=== PATIENT | male | born 1970 | race Caucasian/White ===

== ENCOUNTER 2017-10-18 09:50 | Inpatient (IN) | payer OTHER ==
[2017-10-18] MEDS ORDERED: SODIUM CHLORIDE 1,000 ML IV STA ×3 (11:13→20:02)
[2017-10-18] MEDS ORDERED: ONDANSETRON 4 MG/2 ML VIAL IVPUSH ONE (11:13)
[2017-10-18] MEDS ORDERED: ACETAMINOPHEN 1000 MG/100 ML VIAL (NON FORMULARY) IVPB ONE (11:14)
[2017-10-18] MEDS ORDERED: ACETAMINOPHEN INJECTION 100 ML IVPB ONE (11:21)
[2017-10-18] MEDS ORDERED: ONDANSETRON 4 MG/2 ML VIAL ONE (11:21)
[2017-10-18 11:43] LABS: BASO % 0.9 % (0-2.0); EOS % 1.1 % (0-4.5); HEMATOCRIT 48.9 % (35.4-49); HEMOGLOBIN 15.7 GM/dL (11.7-16.9); LYMPH % 20.8 % (8-40); MCH 27.3 pg (25.7-33.7); MEAN CELL VOLUME 85.2 fl (80-96); MEAN PLT VOLUME 9.1 fl (7.5-11.1); MONO % 12.8 % (3.8-10.2); NEUT % 64.4 % (42.8-82.8); PLATELET COUNT 174 K/MM3 (134-434); RBC 5.73 M/mm3 (4.00-5.60); RDW 13.2 % (11.9-15.9); WHITE BLOOD COUNT 6.7 K/mm3 (4.0-10.0)
[2017-10-18 12:00] LABS: INR 1.09 (0.82-1.09); PROTHROMBIN TIME (PATIENT) 12.3 SEC (9.98-11.88)
[2017-10-18] MEDS ORDERED: OSELTAMIVIR PHOSPHATE 75 MG CAPSULE PO ONE (12:10)
--- NOTE | 2017-10-18 12:10 | PDOC ---
History of Present Illness - General Chief Complaint: Pain Stated Complaint: ABD PAIN Time Seen by Provider: 10/18/17 10:49 History Source: Patient Exam Limitations: No Limitations - History of Present Illness Initial Comments: 10/18/17 12:40 Patient is a 47-year-old male with past medical history of diverticulitis, insulin-dependent diabetes, who presents emergency department today complaining of flulike symptoms and lower abdominal pain. Patient states that his lower abdominal pain began approximately 1 week ago. He states that he has a sharp constant pain in his left lower quadrant. He says this feels reminiscent to when he had diverticulitis in the past. Admits to nausea. Denies blood in the stool, vomiting, diarrhea, constipation. Patient states he also has flulike symptoms. He began with headache, fever, body aches and congestion yesterday. States he did not receive his flu shot. Denies weakness, dizziness, lightheadedness, syncope, chest pain, shortness of breath. Past History - Travel Traveled outside of the country in the last 30 days: No Close contact w/someone who was outside of country & ill: No - Past Medical History Allergies/Adverse Reactions: Allergies Allergy/AdvReac Type Severity Reaction Status Date / Time No Known Allergies Allergy Verified 10/18/17 09:55 Home Medications: Ambulatory Orders metFORMIN HCL [Glucophage -] 500 mg PO BID 10/15/14 Ciprofloxacin [Cipro -] 500 mg PO Q12H #14 tablet 10/18/17 Docusate Sodium [Colace -] 100 mg PO DAILY #14 capsule 10/18/17 Glipizide 0 mg PO DAILY 10/18/17 Insulin Glargine,Hum.rec.anlog [Basaglar Kwikpen U-100] 50 unit SQ HS #5 insuln.pen 10/18/17 Sitagliptin Phosphate [Januvia] 25 mg PO DAILY #10 tab 10/18/17 COPD: No Diabetes: Yes GI Disorders: Yes (DIVERTICULOSIS) HTN: Yes - Surgical History Abdominal Surgery: Yes (diverticulis) - Suicide/Smoking/Psychosocial Hx Smoking Status: No Smoking History: Never smoked Number of Cigarettes Smoked Daily: 0 Information on smoking cessation initiated: No Hx Alcohol Use: No Drug/Substance Use Hx: No Substance Use Type: None Hx Substance Use Treatment: No Review of Systems - Review of Systems Able to Perform ROS?: Yes Comments:: 10/18/17 13:43 CONSTITUTIONAL: Present: fever, chills Absent: diaphoresis, generalized weakness, malaise, loss of appetite HEENT: Present: nasal congestion Absent: rhinorrhea, throat pain, throat swelling, difficulty swallowing, mouth swelling, ear pain, eye pain, visual Changes CARDIOVASCULAR: Absent: chest pain, loss of consciousness, palpitations, irregular heart rate, peripheral edema RESPIRATORY: Present: cough Absent: shortness of breath, dyspnea with exertion, orthopnea, wheezing, stridor, hemoptysis GASTROINTESTINAL: Present: abdominal pain, nausea Absent: abdominal distension, vomiting, diarrhea, constipation, melena, hematochezia GENITOURINARY: Absent: dysuria, frequency, urgency, hesitancy, hematuria, flank pain, genital pain MUSCULOSKELETAL: Absent: myalgia, arthralgia, joint swelling SKIN: Absent: rash, itching, pallor HEMATOLOGIC/IMMUNOLOGIC: Absent: easy bleeding, easy bruising, lymphadenopathy, frequent infections ENDOCRINE: Absent: unexplained weight gain, unexplained weight loss, heat intolerance, cold intolerance NEUROLOGIC: Present: headache Absent: focal weakness or paresthesias, dizziness, unsteady gait, seizure, mental status changes, bladder or bowel incontinence PSYCHIATRIC: Absent: anxiety, depression, suicidal or homicidal ideation, hallucinations. Is the patient limited Senegalese proficient: No *Physical Exam - Vital Signs Last Vital Signs Temp Pulse Resp BP Pulse Ox 98.8 F 95 H 17 118/85 98 10/18/17 09:53 10/18/17 09:53 10/18/17 09:53 10/18/17 09:53 10/18/17 09:53 - Physical Exam General Appearance: Yes: Nourished, Appropriately Dressed, Obese. No: Apparent Distress HEENT: positive: EOMI, HENNY, Pharynx Normal. negative: Tonsillar Exudate, Tonsillar Erythema Neck: positive: Trachea midline, Supple. negative: Tender, Rigid, Lymphadenopathy (R), Lymphadenopathy (L) Respiratory/Chest: positive: Lungs Clear, Normal Breath Sounds. negative: Respiratory Distress, Accessory Muscle Use, Rhonchi, Stridor, Wheezing Cardiovascular: positive: Regular Rhythm, Regular Rate, S1, S2 (present). negative: Edema, Murmur Gastrointestinal/Abdominal: positive: Normal Bowel Sounds, Tender (LLQ tenderness ), Soft. negative: Distended, Guarding, Rebound Lymphatic: negative: Adenopathy Musculoskeletal: positive: Normal Inspection. negative: CVA Tenderness, Decreased Range of Motion Extremity: positive: Normal Capillary Refill, Normal Inspection, Normal Range of Motion Integumentary: positive: Normal Color, Dry, Warm. negative: Rash, Swelling Neurologic: positive: hand etcher II-XII NML intact, Fully Oriented, Alert, Normal Mood/ Affect, Normal Response, Motor Strength 01/13 ED Treatment Course - LABORATORY CBC & Chemistry Diagram: 10/20/17 07:14 10/20/17 07:14 - ADDITIONAL ORDERS Additional order review: Laboratory Results 10/18/17 10/18/17 11:35 11:35 PT with INR 12.30 H INR 1.09 Lipase Cancelled 10/18/17 11:35 Influenza Types A,B Antigen ([place]) - Preliminary Nasopharyngeal Swab - Preliminary 10/18/17 11:35 RBC 5.73 H MCV 85.2 MCHC 32.0 RDW 13.2 MPV 9.1 Neutrophils % 64.4 Lymphocytes % 20.8 D Monocytes % 12.8 H Eosinophils % 1.1 Basophils % 0.9 - RADIOLOGY Radiology Studies Ordered: Category Date Time Status ABDOMEN & PELVIS CT WITH CONTR [CT] Stat CT Scan 10/18/17 11:14 Ordered CHEST X-RAY PORTABLE* [RAD] Stat Radiology 10/18/17 11:13 Taken - Medications Given in the ED: ED Medications Discontinued Medications Generic Name Dose Route Start Last Admin Trade Name Freq PRN Reason Stop Dose Admin Acetaminophen 1,000 mg 10/18/17 11:14 10/18/17 11:36 Ofirmev Injection - IVPB 10/18/17 11:15 1,000 mg ONCE ONE Administration Ondansetron HCl 4 mg 10/18/17 11:13 10/18/17 11:36 Zofran Injection IVPUSH 10/18/17 11:14 4 mg ONCE ONE Administration Medical Decision Making - Medical Decision Making 10/18/17 12:13 Patient is a 47-year-old male with past medical history of diverticulitis, insulin-dependent diabetes, who presents emergency department today complaining of flulike symptoms for one day and lower abdominal pain for one week. On exam pt with generalized tenderness that is worst in the LLQ. Concerning for diverticulitis. No flank pain on exam. Symptoms also concerning for influenza. 1. CBC, CMP, PT/INR, Lipase, Influenza, UA 2. CTAP with contrast 3. IVF, Zofran, Ofirmev 4.Re-evaluate 10/18/17 13:00 Flu B positive. Gluose 310. Will give 5 units of IV regular insulin. Pt has IV fluids running at this time. Pt. to go to CT scan. Pt. still c/o pain. Will give morphine at this time. 10/18/17 15:01 CTAP: Mild wall thickening is seen involving the middle third of the sigmoid colon suggestive of acute diverticulitis. Minimal pericolonic edema is seen. No extraluminar air is identified. No CT evidence of abscess formation. No bowel obstruction is noted. Pt. still having abdominal pain at this time. Will give another two of morphine. Re-drawing CMP for blood glucose. 10/18/17 17:07 Glucose now 226. Will give another 5 of insulin at this time and hang a second liter of fluids. Pt. still c/o headache and slight nausea. Will give reglan and benadryl. Once meds finish, will also give first dose of IV abx levo and flagyl to cover the diverticulitis. 10/18/17 18:50 Pt. reports that his headache is better after eating. Pt. now with fever of 100.9F. Will give Tylenol at this time. I suspect the fever is from the pt's flu virus. Waiting to finish IV abx and plan is to d/c home with oral medications as long as fever 10/18/17 19:00 Sign out given to Reshma Cunningham. Discussed case and plan. *DC/Admit/Observation/Transfer Diagnosis at time of Disposition: Influenza B, Hyperglycemia due to type 1 diabetes mellitus, Intractable abdominal pain Diverticulitis Qualifiers: Diverticulitis site: large intestine Diverticulitis bleeding: without bleeding Diverticulitis complication: without perforation or abscess Qualified Code(s): K57.32 - Diverticulitis of large intestine without perforation or abscess without bleeding - Discharge Dispostion Condition at time of disposition: Stable Admit: Yes - Prescriptions - Referrals - Patient Instructions - Post Discharge Activity
[2017-10-18 12:11] LABS: ALBUMIN 3.4 g/dl (3.4-5.0); ALK PHOS 91 U/L (45-117); ANION GAP 10 (8-16); BLOOD UREA NITROGEN 11 mg/dL (7-18); CALCIUM 8.5 mg/dL (8.5-10.1); CHLORIDE 96 mmol/L (98-107); CO2 28 mmol/L (21-32); CREATININE 0.9 mg/dL (0.7-1.3); LIPASE 133 U/L (73-393); POTASSIUM 4.4 mmol/L (3.5-5.1); SGOT/AST 31 U/L (15-37); SGPT/ALT 60 U/L (12-78); SODIUM 134 mmol/L (136-145); TOT PROT 7.1 g/dl (6.4-8.2)
[2017-10-18 12:13] LABS: GLUCOSE,RANDOM 331 mg/dL (74-106)
[2017-10-18] MEDS ORDERED: morphine CARPU-JECT 2 MG/1 ML DISP.SYRIN IVPUSH ONE ×2 (12:13→15:04)
[2017-10-18] MEDS ORDERED: INSULIN REGULAR HUMAN 100 UNITS/ML *VIAL IVPUSH ONE ×2 (12:13→16:43)
[2017-10-18] MEDS ORDERED: MORPHINE SULFATE 10 MG/1 ML *VIAL ONE ×2 (12:16→15:24)
[2017-10-18] MEDS ORDERED: OSELTAMIVIR PHOSPHATE 75 MG CAPSULE ONE (12:17)
[2017-10-18] MEDS ORDERED: INSULIN REGULAR HUMAN 100 UNITS/ML *VIAL ONE ×2 (12:18→17:13)
[2017-10-18 12:54] LABS: URINE APPEARANCE CLEAR; URINE BILIRUBIN NEGATIVE (NEGATIVE); URINE BLOOD NEGATIVE (NEGATIVE); URINE COLOR YELLOW; URINE GLUCOSE (UA) 3+ (NEGATIVE); URINE KETONE TRACE (NEGATIVE); URINE LEUK ESTERASE NEGATIVE (NEGATIVE); URINE NITRITE NEGATIVE (NEGATIVE); URINE PROTEIN NEGATIVE (NEGATIVE); URINE UROBILINOGEN NEGATIVE mg/dL (0.2-1.0)
[2017-10-18] MEDS ORDERED: METOCLOPRAMIDE HCL INJECTION 10 MG/2 ML VIAL IVPB ONE (15:03)
[2017-10-18] MEDS ORDERED: METOCLOPRAMIDE HCL INJECTION 10 MG/2 ML VIAL ONE (15:24)
[2017-10-18 16:17] LABS: CALCIUM 8.5 mg/dL (8.5-10.1); CHLORIDE 98 mmol/L (98-107); POTASSIUM 4.7 mmol/L (3.5-5.1); SODIUM 135 mmol/L (136-145)
[2017-10-18 16:24] LABS: ALBUMIN 3.3 g/dl (3.4-5.0); ALK PHOS 84 U/L (45-117); ANION GAP 7 (8-16); BLOOD UREA NITROGEN 10 mg/dL (7-18); CO2 30 mmol/L (21-32); CREATININE 0.8 mg/dL (0.7-1.3); GLUCOSE,RANDOM 265 mg/dL (74-106); SGOT/AST 28 U/L (15-37); SGPT/ALT 56 U/L (12-78); TOT PROT 7.1 g/dl (6.4-8.2)
[2017-10-18] MEDS ORDERED: ACETAMINOPHEN 325 MG TABLET (FP) PO ONE (18:56)
[2017-10-18] MEDS ORDERED: ACETAMINOPHEN 325 MG TABLET (FP) ONE (19:03)
[2017-10-18] MEDS ORDERED: IBUPROFEN 600 MG TABLET (FP) PO ONE ×2 (20:02→20:04)
[2017-10-18] MEDS ORDERED: ALBUTEROL SO4 0.083% IH SOL 2.5 MG/3 ML VIAL.NEB. NEB ONE ×4 (20:02→22:14)
--- NOTE | 2017-10-18 20:03 | PDOC ---
*Physical Exam - Vital Signs Last Vital Signs Temp Pulse Resp BP Pulse Ox 100.9 F H 92 H 18 102/73 98 10/18/17 19:00 10/18/17 19:00 10/18/17 19:00 10/18/17 19:00 10/18/17 19:00 - Physical Exam General Appearance: Yes: Appropriately Dressed Respiratory/Chest: positive: Rhonchi, Other (coarse breath sounds) Gastrointestinal/Abdominal: positive: Normal Bowel Sounds, Tender (LLQ), Soft Extremity: positive: Normal Capillary Refill, Normal Inspection, Normal Range of Motion Integumentary: positive: Normal Color, Dry, Warm Neurologic: positive: Fully Oriented, Alert, Normal Mood/Affect ED Treatment Course - LABORATORY CBC & Chemistry Diagram: 10/18/17 11:35 10/18/17 15:45 - ADDITIONAL ORDERS Additional order review: Laboratory Results 10/18/17 10/18/17 10/18/17 15:45 12:40 11:35 PT with INR INR Sodium 135 L Potassium 4.7 Chloride 98 Carbon Dioxide 30 Anion Gap 7 L BUN 10 Creatinine 0.8 Creat Clearance w eGFR > 60 Random Glucose 265 H Calcium 8.5 Total Bilirubin 1.0 AST 28 ALT 56 Alkaline Phosphatase 84 Total Protein 7.1 Albumin 3.3 L Lipase Cancelled Urine Color Yellow Urine Appearance Clear Urine pH 6.0 Ur Specific [place] 1.035 Urine Protein Negative Urine Glucose (UA) 3+ H Urine Ketones Trace H Urine Blood Negative Urine Nitrite Negative Urine Bilirubin Negative Urine Urobilinogen Negative Ur Leukocyte Esterase Negative 10/18/17 10/18/17 11:35 11:35 PT with INR 12.30 H INR 1.09 Sodium 134 L Potassium 4.4 Chloride 96 L Carbon Dioxide 28 Anion Gap 10 BUN 11 Creatinine 0.9 Creat Clearance w eGFR > 60 Random Glucose 331 H* D Calcium 8.5 Total Bilirubin 1.0 AST 31 D ALT 60 D Alkaline Phosphatase 91 Total Protein 7.1 Albumin 3.4 Lipase 133 Urine Color Urine Appearance Urine pH Ur Specific [place] Urine Protein Urine Glucose (UA) Urine Ketones Urine Blood Urine Nitrite Urine Bilirubin Urine Urobilinogen Ur Leukocyte Esterase 10/18/17 11:35 Influenza Types A,B Antigen ([place]) - Final Nasopharyngeal Swab - Final 10/18/17 11:35 RBC 5.73 H MCV 85.2 MCHC 32.0 RDW 13.2 MPV 9.1 Neutrophils % 64.4 Lymphocytes % 20.8 D Monocytes % 12.8 H Eosinophils % 1.1 Basophils % 0.9 - Medications Given in the ED: ED Medications Discontinued Medications Generic Name Dose Route Start Last Admin Trade Name Gigi PRN Reason Stop Dose Admin Acetaminophen 1,000 mg 10/18/17 11:14 10/18/17 11:36 Ofirmev Injection - IVPB 10/18/17 11:15 1,000 mg ONCE ONE Administration Acetaminophen 975 mg 10/18/17 18:56 10/18/17 19:05 Tylenol - PO 10/18/17 18:57 975 mg ONCE ONE Administration Diphenhydramine HCl 12.5 mg 10/18/17 15:04 10/18/17 15:31 Benadryl Injection - IVPUSH 10/18/17 15:05 12.5 mg ONCE ONE Administration Sodium Chloride 1,000 mls @ 1,000 mls/hr 10/18/17 11:13 10/18/17 11:36 Normal Saline - IV 10/18/17 12:12 1,000 mls/hr ASDIR STA Administration Metronidazole 500 mg in 100 mls @ 100 mls/hr 10/18/17 17:07 10/18/17 17:20 Flagyl 500mg Premixed Ivpb - IVPB 10/18/17 18:06 100 mls/hr ONCE ONE Administration Levofloxacin 750 mg in 150 mls @ 100 mls/hr 10/18/17 17:06 10/18/17 17:49 Levaquin 750 Mg Premixed Ivpb - IVPB 10/18/17 18:35 100 mls/hr ONCE ONE Administration Sodium Chloride 1,000 mls @ 1,000 mls/hr 10/18/17 17:08 10/18/17 17:20 Normal Saline - IV 10/18/17 18:07 1,000 mls/hr ASDIR STA Administration Insulin Human Regular 5 units 10/18/17 12:13 10/18/17 12:23 Novolin R Vial *For Ivpush Or Iv Drip Only* IVPUSH 10/18/17 12:14 5 units ONCE ONE Administration Insulin Human Regular 5 units 10/18/17 16:43 10/18/17 17:19 Novolin R Vial *For Ivpush Or Iv Drip Only* IVPUSH 10/18/17 16:44 5 units ONCE ONE Administration Metoclopramide HCl 10 mg 10/18/17 15:03 10/18/17 15:32 Reglan Injection - IVPB 10/18/17 15:04 10 mg ONCE ONE Administration Morphine Sulfate 2 mg 10/18/17 12:13 10/18/17 12:23 Morphine Injection - IVPUSH 10/18/17 12:14 2 mg ONCE ONE Administration Morphine Sulfate 2 mg 10/18/17 15:04 10/18/17 15:31 Morphine Injection - IVPUSH 10/18/17 15:05 2 mg ONCE ONE Administration Ondansetron HCl 4 mg 10/18/17 11:13 10/18/17 11:36 Zofran Injection IVPUSH 10/18/17 11:14 4 mg ONCE ONE Administration Oseltamivir Phosphate 75 mg 10/18/17 12:10 10/18/17 12:24 Tamiflu - PO 10/18/17 12:11 75 mg ONCE ONE Administration Medical Decision Making - Medical Decision Making 10/18/17 21:45 Patient c/o headache, abdominal pain, with persistent fevers. repeat blood sugar is 336bpm. patient is requesting pain medication will give dose of dilaudid, 10/18/17 21:47 Patient to be admitted for further management of care. patient signed out to Dr. mac. pending blood culture, lactic acid. *DC/Admit/Observation/Transfer Diagnosis at time of Disposition: Influenza B, Hyperglycemia due to type 1 diabetes mellitus, Intractable abdominal pain Diverticulitis Qualifiers: Diverticulitis site: large intestine Diverticulitis bleeding: without bleeding Diverticulitis complication: without perforation or abscess Qualified Code(s): K57.32 - Diverticulitis of large intestine without perforation or abscess without bleeding - Discharge Dispostion Condition at time of disposition: Stable Admit: Yes - Prescriptions Prescriptions: Ciprofloxacin [Cipro -] 500 mg PO Q12H #14 tablet Docusate Sodium [Colace -] 100 mg PO DAILY #14 capsule Insulin Glargine,Hum.rec.anlog [Basaglar Kwikpen U-100] 50 unit SQ HS #5 insuln.pen metroNIDAZOLE [Flagyl -] 500 mg PO TID #21 tablet Oseltamivir Phosphate [Tamiflu] 75 mg PO BID #10 capsule Oxycodone HCl/Acetaminophen [Percocet 5-325 mg Tablet] 1 tab PO Q6H PRN #20 tablet MDD 4 PRN Reason: abdominal pain Sitagliptin Phosphate [Januvia] 25 mg PO DAILY #10 tab - Referrals Referrals: Kenn Nguyen MD [Staff Physician] - Jluis Ordonez MD [Staff Physician] - - Patient Instructions Printed Discharge Instructions: DI for Diverticulitis, DI for Influenza -- Adult Additional Instructions: You have both diverticulitis and influenza B. For your diverticulitis please start taking Cipro and metronidazole tomorrow. Follow the dosing instructions on the bottle. He'll be taking this medication for one week. He received his fiirst dose in the emergency department tonight. Please have a clear liquid diet, soups, jello, for the next 2 days to help the bowel rest. After that he may advance to a soft diet. He may take Percocet as needed for pain. For the flu please take Tylenol or Motrin every 6 hours for fevers. Drink plenty of fluids, and get plenty of rest. Your prescribed Tamiflu. Please take this medication twice a day. Her first dose is given in the emergency department. Please follow up with the referrals provided for you he should follow-up within the next 2-3 days if possible. Return to the emergency department if you have worsening abdominal pain, worsening fevers, difficulty breathing, shortness of breath, abdominal pain, or any changes in your symptoms. - Post Discharge Activity Forms/Work/School Notes: Back to Work
[2017-10-18] MEDS ORDERED: HYDROmorphone HCL CARPU-JECT 1 MG/1 ML DISP.SYRIN IVPUSH ONE (21:50)
--- NOTE | 2017-10-18 22:02 | HP ---
CHIEF COMPLAINT: abdominal pain x 1 week PCP: Dr. Wyatt HISTORY OF PRESENT ILLNESS: 47 y/o M with PMH diverticulitis (last here in 2014; tx with Flagyl and levaquin ), IDDM, who presents to the ED c/o abdominal pain x 1 week. As per pt, his abdominal pain shifts between his RLQ and LLQ, is 10/10, a "sharp, pressure pain ," intermittent, without radiation. When he has the pain, it occurs for approximately 2-3 minutes before it subsides. It is mildly alleviated with Tylenol. Pt also endorses 3-4 loose BM's (without blood), generalized headache, nausea without emesis, productive cough with yellow sputum (without blood), rhinorrhea, myalgias, and SOB at rest over the past day. Otherwise, he denies chills, chest pain, or changes in urinary or bowel function. Pt states that his pain is different from his last flare of diverticulitis, which was more prominent in his LLQ. He has not had drastic changes to his diet recently. ER course was notable for: (1) Febrile 102 tmax (2) Tachy 101HR (3) BG 265 Recent Travel: none PAST MEDICAL HISTORY: hx diverticulitis (follows with PMD Dr. Wyatt who has recommended weight loss), IDDM PAST SURGICAL HISTORY: L knee- meniscus repair, arthroscopy. Unknown abdominal surgery Social History: current solid waste truck driver Smoking: denies Alcohol: denies Drugs: denies Family History: Father- diabetic, with cardiac issues Allergies No Known Allergies Allergy (Verified 10/18/17 09:55) HOME MEDICATIONS: Home Medications Medication Instructions Recorded metFORMIN HCL [Glucophage -] 500 mg PO BID 10/15/14 Ciprofloxacin [Cipro -] 500 mg PO Q12H #14 tablet 10/18/17 Docusate Sodium [Colace -] 100 mg PO DAILY #14 capsule 10/18/17 Glipizide 0 mg PO DAILY 10/18/17 Insulin Glargine,Hum.rec.anlog 50 unit SQ HS #5 insuln.pen 10/18/17 [Basaglar Kwikpen U-100] Oseltamivir Phosphate [Tamiflu] 75 mg PO BID #10 capsule 10/18/17 Oxycodone HCl/Acetaminophen 1 tab PO Q6H PRN #20 tablet MDD 4 10/18/17 [Percocet 5-325 mg Tablet] Sitagliptin Phosphate [Januvia] 0 mg PO DAILY 10/18/17 Sitagliptin Phosphate [Januvia] 25 mg PO DAILY #10 tab 10/18/17 metroNIDAZOLE [Flagyl -] 500 mg PO TID #21 tablet 10/18/17 REVIEW OF SYSTEMS CONSTITUTIONAL: Absent: fever, chills, diaphoresis, generalized weakness, malaise, loss of appetite, weight change HEENT: +rhinorrhea Absent: nasal congestion, throat pain, throat swelling, difficulty swallowing, mouth swelling, ear pain, eye pain, visual changes CARDIOVASCULAR: Absent: chest pain, syncope, palpitations, irregular heart rate, lightheadedness , peripheral edema RESPIRATORY: +cough, SOB Absent: dyspnea with exertion, orthopnea, wheezing, stridor, hemoptysis GASTROINTESTINAL: +abdominal pain, nausea Absent: abdominal distension, vomiting, diarrhea, constipation, melena, hematochezia GENITOURINARY: Absent: dysuria, frequency, urgency, hesitancy, hematuria, flank pain, genital pain MUSCULOSKELETAL: +myalgia Absent: arthralgia, joint swelling, back pain, neck pain SKIN: Absent: rash, itching, pallor HEMATOLOGIC/IMMUNOLOGIC: Absent: easy bleeding, easy bruising, lymphadenopathy, frequent infections ENDOCRINE: Absent: unexplained weight gain, unexplained weight loss, heat intolerance, cold intolerance NEUROLOGIC: +headache Absent: focal weakness or paresthesias, dizziness, unsteady gait, seizure, mental status changes, bladder or bowel incontinence PSYCHIATRIC: Absent: anxiety, depression, suicidal or homicidal ideation, hallucinations. PHYSICAL EXAMINATION Vital Signs - 24 hr 10/18/17 19:00 Temperature 100.9 F H Pulse Rate Pulse Rate [ 92 H Right Radial] Respiratory 18 Rate Blood Pressure Blood Pressure 102/73 [Left Arm] O2 Sat by Pulse 98 Oximetry (%) 10/18/17 10/18/17 20:03 21:44 Temperature 102 F H 100.9 F H Pulse Rate Pulse Rate [ 101 H Right Radial] Respiratory 20 Rate Blood Pressure Blood Pressure 136/76 [Left Arm] O2 Sat by Pulse 93 L Oximetry (%) GENERAL: Sitting up comfortably in bed. Awake, alert, and fully oriented, in no acute distress. Receiving neb tx. HEAD: Normal with no signs of trauma. EYES: Pupils equal, round and reactive to light, extraocular movements intact, sclera anicteric, conjunctiva clear. EARS, NOSE, THROAT: Ears normal, nares patent, oropharynx clear without exudates. Moist mucous membranes. NECK: Normal range of motion, supple LUNGS: Breath sounds equal, clear to auscultation bilaterally. No wheezes, and no crackles. No accessory muscle use. HEART: tachycardic rate and rhythm, normal S1 and S2 without murmur, rub or gallop. ABDOMEN: Soft, obese, TTP in RLQ, LLQ. not distended, normoactive bowel sounds, no guarding, no rebound, no masses. LOWER EXTREMITIES: 2+ posterior tibial pulses, warm, well-perfused. No calf tenderness. No peripheral edema. NEUROLOGICAL: Cranial nerves II-XII intact. Laboratory Results 10/18/17 10/18/17 10/18/17 11:35 11:35 11:35 WBC 6.7 D RBC 5.73 H Hgb 15.7 D Hct 48.9 MCV 85.2 MCH 27.3 MCHC 32.0 RDW 13.2 Plt Count 174 D MPV 9.1 Neutrophils % 64.4 Lymphocytes % 20.8 D Monocytes % 12.8 H Eosinophils % 1.1 Basophils % 0.9 PT with INR 12.30 H INR 1.09 Sodium 134 L Potassium 4.4 Chloride 96 L Carbon Dioxide 28 Anion Gap 10 BUN 11 Creatinine 0.9 Creat Clearance w eGFR > 60 POC Glucometer Random Glucose 331 H* D Calcium 8.5 Total Bilirubin 1.0 AST 31 D ALT 60 D Alkaline Phosphatase 91 Total Protein 7.1 Albumin 3.4 Lipase 133 10/18/17 10/18/17 10/18/17 11:35 12:40 15:45 INR Sodium 135 L Potassium 4.7 Chloride 98 Carbon Dioxide 30 Anion Gap 7 L BUN 10 Creatinine 0.8 Creat Clearance w eGFR > 60 POC Glucometer Random Glucose 265 H Calcium 8.5 Total Bilirubin 1.0 AST 28 ALT 56 Alkaline Phosphatase 84 Total Protein 7.1 Albumin 3.3 L Urine Color Yellow Urine Appearance Clear Urine pH 6.0 Ur Specific [place] 1.035 Urine Protein Negative Urine Glucose (UA) 3+ H Urine Ketones Trace H Urine Blood Negative Urine Nitrite Negative Urine Bilirubin Negative Urine Urobilinogen Negative Ur Leukocyte Esterase Negative Microbiology 10/18/17 11:35 Nasopharyngeal Swab Influenza Types A,B Antigen ([place]) - Final 10/18/17 11:35 Nasopharyngeal Swab - Final Blood cx: pending Urine cx: pending Radio CXR: without infiltrates or effusions Abd/pelvis CT: mild eccentric wall thickening, multiple diverticula noted. Acute uncomplicated diverticultis, diffuse hepatic steatosis. EKG Qtc: 419 ms ASSESSMENT/PLAN: 47 y/o M with PMH diverticulitis (last here in 2014; tx with Flagyl and levaquin ), IDDM, who presents to the ED c/o abdominal pain x 1 week. Pt admitted to med- surg for sepsis 2/2 acute diverticulitis flare. #Sepsis 2/2 acute diverticulitis flare -Febrile 102 Tmax, Tachy 101HR -Received flagyl 500mg x 1 , levaquin 750mg x 1 in ED -Continued on flagyl 500mg IVPB q8h, levaquin 750 mg IVPB qd -Follow EKG, to check for QTc prolongation as pt on Levaquin (and received Zofran). Currently 419 ms WNL. -IVF -clear liquid diet, to allow for bowel rest #Influenza B (+) -Received 1 dose tamiflu 75mg PO x 1 in ED -Continued on tamiflu 75mg PO BID, will need for 5 day course -isolation, droplet precautions #IDDM -ISS ACHS -BGM #PPX DVT: Hep 5000 SQ BID #F/E/N IV NS 100 cc/hr Monitor electrolytes Clear liquid diet, will advance as tolerates #Dispo med-surg for cont'd monitoring Visit type - Emergency Visit Emergency Visit: Yes ED Registration Date: 10/18/17 Care time: The patient presented to the Emergency Department on the above date and was hospitalized for further evaluation of their emergent condition. - New Patient This patient is new to me today: Yes Date on this admission: 10/19/17 - Critical Care Critical Care patient: No
--- NOTE | 2017-10-18 22:05 | PN ---
Teaching Attending Note Name of Resident: Aubree Lawson ATTENDING PHYSICIAN STATEMENT I saw and evaluated the patient. I reviewed the resident's note and discussed the case with the resident. I agree with the resident's findings and plan as documented. SUBJECTIVE: 47 YO M with Pmhx. of diverticulitis., IDDM, who presents with lower abdominal pain. States abdominal pain began around 1 week prior. Notes he has pain that is sharp and constant. Notes that it is located in his LLQ. States he is nauseous, but denies any vomiting or diarrhea. Denies any constipation. Also has associated headache. fever, body aches, and congestionh. Notes he did not get his flu shot. OBJECTIVE: Physical: VS: Vital Signs Period Temp Pulse Resp BP Sys/Yeung Pulse Ox Last 24 Hr 98.8 F-102 F 92-101 17-20 102-137/73-89 93-98 GEN: NAD, Resting in bed, AA0X3 HEENT: NCAT, PERRL, throat without erythema or exudates CARD: RRR S1, S2 RESP: CTAB ABD:BSx4, Ntd to palpation EXT:- C/C/E CBCD WBC 6.7 K/mm3 (4.0-10.0) D 10/18/17 11:35 RBC 5.73 M/mm3 (4.00-5.60) H 10/18/17 11:35 Hgb 15.7 GM/dL (11.7-16.9) D 10/18/17 11:35 Hct 48.9 % (35.4-49) 10/18/17 11:35 MCV 85.2 fl (80-96) 10/18/17 11:35 MCHC 32.0 g/dl (32.0-35.9) 10/18/17 11:35 RDW 13.2 % (11.9-15.9) 10/18/17 11:35 Plt Count 174 K/MM3 (134-434) D 10/18/17 11:35 MPV 9.1 fl (7.5-11.1) 10/18/17 11:35 CMP Sodium 135 mmol/L (136-145) L 10/18/17 15:45 Potassium 4.7 mmol/L (3.5-5.1) 10/18/17 15:45 Chloride 98 mmol/L (98-107) 10/18/17 15:45 Carbon Dioxide 30 mmol/L (21-32) 10/18/17 15:45 Anion Gap 7 (8-16) L 10/18/17 15:45 BUN 10 mg/dL (7-18) 10/18/17 15:45 Creatinine 0.8 mg/dL (0.7-1.3) 10/18/17 15:45 Creat Clearance w eGFR > 60 (>60) 10/18/17 15:45 Random Glucose 265 mg/dL (74-106) H 10/18/17 15:45 Calcium 8.5 mg/dL (8.5-10.1) 10/18/17 15:45 Total Bilirubin 1.0 mg/dL (0.2-1.0) 10/18/17 15:45 AST 28 U/L (15-37) 10/18/17 15:45 ALT 56 U/L (12-78) 10/18/17 15:45 Alkaline Phosphatase 84 U/L (45-117) 10/18/17 15:45 Total Protein 7.1 g/dl (6.4-8.2) 10/18/17 15:45 Albumin 3.3 g/dl (3.4-5.0) L 10/18/17 15:45 CXR- Negative ABD/PELVIS CT: Mild Eccentric wall thickening seen within mid sigmoid colon with probable minimal associated pericolonic edema. Multiple diverticula/ acute uncomplicated diverticulitis. Diffuse hepatic steatosis ASSESSMENT AND PLAN: 47 YO M with Pmhx. of diverticulitis., IDDM, who presents with lower abdominal pain, fevers, and myalgias found to be septic 1.) Sepsis - Due to diverticulitis/Influenza B+ - Isolation Droplet percautions - Jordan Cx - Thu Flu - Levaquin/Flagyl - IVF - Clear Liquid diet 2.) IDDM - FS - RAISS 3.) Dvt Ppx - Heparin [address] in Med-Sx
[2017-10-18] MEDS ORDERED: HYDROmorphone HCL CARPU-JECT 2 MG/1 ML DISP.SYRIN ONE (22:13)
[2017-10-18] MEDS: SODIUM CHLORIDE 1,000 ML IV SCH (23:03)
[2017-10-18] MEDS: HEPARIN NA (PORCINE) 5,000 UNITS/ML 1ML VIAL SQ SCH (23:10)
[2017-10-18] MEDS ORDERED: HEPARIN NA (PORCINE) 5,000 UNITS/ML 1ML VIAL ONE (23:15)
[2017-10-18 23:41] LABS: ARTERIAL BLOOD GAS PCO2 42.8 mmHg (35-45); ARTERIAL BLOOD GAS pH 7.36 (7.35-7.45)
[2017-10-18 23:42] LABS: ALLENS TEST POSITIVE; ARTERIAL BLD GAS O2 SATURATION 91.8 % (90-98.9); ARTERIAL BLOOD GAS PO2 63.5 mmHg (80-100)
[2017-10-19 07:13] LABS: BASO % 0.6 % (0-2.0); EOS % 1.2 % (0-4.5); HEMATOCRIT 48.1 % (35.4-49); HEMOGLOBIN 15.5 GM/dL (11.7-16.9); LYMPH % 29.7 % (8-40); MCH 27.9 pg (25.7-33.7); MCHC 32.3 g/dl (32.0-35.9); MEAN CELL VOLUME 86.5 fl (80-96); MEAN PLT VOLUME 9.3 fl (7.5-11.1); MONO % 15.2 % (3.8-10.2); NEUT % 53.3 % (42.8-82.8); PLATELET COUNT 152 K/MM3 (134-434); RBC 5.56 M/mm3 (4.00-5.60); RDW 13.4 % (11.9-15.9)
[2017-10-19 08:10] LABS: CHLORIDE 100 mmol/L (98-107); POTASSIUM 4.6 mmol/L (3.5-5.1); SODIUM 134 mmol/L (136-145)
[2017-10-19 08:21] LABS: ANION GAP 9 (8-16); BLOOD UREA NITROGEN 12 mg/dL (7-18); CALCIUM 7.9 mg/dL (8.5-10.1); CO2 25 mmol/L (21-32); CREATININE 0.9 mg/dL (0.7-1.3); GLUCOSE,RANDOM 280 mg/dL (74-106)
--- NOTE | 2017-10-19 08:37 | PN ---
Physical Exam: SUBJECTIVE: Patient seen and examined by me this AM - Still with crampy lower abdominal pain in LLQ/RLQ, no BM overnight; Denies N/V ; still with productive cough; poor PO intake; Endorses fevers/chills overnight ; States he had diarrhea last monday after starting diet, eating mostly salads, cooked fish; diarrhea lasted until monday; all BMs since then have been formed , normal color, with no blood or tarry-appearance; denies eating any undercooked food, canned foods recently - Pt received colonoscopy in past, notable for suspected diverticuli; Mother with flu, pt exposed OBJECTIVE: Vital Signs Intake & Output 10/16/17 10/17/17 10/18/17 10/19/17 23:59 23:59 23:59 23:59 Intake Total 1000 Balance 1000 Weight 151.953 kg Period Temp Pulse Resp BP Sys/Yeung Pulse Ox Last 24 Hr 97.7 F-102 F 84-101 15-20 102-143/73-94 93-98 GENERAL: The patient is awake, alert, and fully oriented, laying in bed, in mild discomfort HEAD: Normal with no signs of trauma. EYES: PERRL, extraocular movements intact, sclera anicteric, conjunctiva clear. No ptosis. ENT: Ears normal, nares patent, oropharynx clear without exudates, moist mucous membranes. NECK: Trachea midline, full range of motion, supple. LUNGS: Breath sounds equal, clear to auscultation bilaterally, no wheezes, no crackles, no accessory muscle use. HEART: Regular rate and rhythm, S1, S2 without murmur, rub or gallop. ABDOMEN: Distended abdomen; Pain in all 4 quadrants to palpation, more pronounced in LLQ/RLQ. + Rebound tenderness. Voluntary guarding. Normoactive bowel sounds. No organomegaly or masses noted. EXTREMITIES: 2+ pulses, warm, well-perfused, no edema. NEUROLOGICAL: Cranial nerves II through XII grossly intact. Normal speech, gait not observed. PSYCH: Normal mood, normal affect. SKIN: Warm, dry, normal turgor, no rashes or lesions noted Laboratory Results - last 24 hr CBC, BMP 10/19/17 06:30 10/19/17 06:30 10/18/17 10/18/17 10/18/17 11:35 11:35 11:35 WBC 6.7 D RBC 5.73 H Hgb 15.7 D Hct 48.9 MCV 85.2 MCH 27.3 MCHC 32.0 RDW 13.2 Plt Count 174 D MPV 9.1 Neutrophils % 64.4 Lymphocytes % 20.8 D Monocytes % 12.8 H Eosinophils % 1.1 Basophils % 0.9 PT with INR 12.30 H INR 1.09 Puncture Site ABG pH ABG pCO2 at Pt Temp ABG pO2 at Pt Temp ABG HCO3 ABG O2 Sat (Measured) ABG O2 Content ABG Base Excess Dat Test Oxygen Flow Rate Sodium 134 L Potassium 4.4 Chloride 96 L Carbon Dioxide 28 Anion Gap 10 BUN 11 Creatinine 0.9 Creat Clearance w eGFR > 60 POC Glucometer Random Glucose 331 H* D Lactic Acid Calcium 8.5 Total Bilirubin 1.0 AST 31 D ALT 60 D Alkaline Phosphatase 91 Total Protein 7.1 Albumin 3.4 Lipase 133 Urine Color Urine Appearance Urine pH Ur Specific [place] Urine Protein Urine Glucose (UA) Urine Ketones Urine Blood Urine Nitrite Urine Bilirubin Urine Urobilinogen Ur Leukocyte Esterase 10/18/17 10/18/17 10/18/17 11:35 12:40 15:45 WBC RBC Hgb Hct MCV MCH MCHC RDW Plt Count MPV Neutrophils % Lymphocytes % Monocytes % Eosinophils % Basophils % PT with INR INR Puncture Site ABG pH ABG pCO2 at Pt Temp ABG pO2 at Pt Temp ABG HCO3 ABG O2 Sat (Measured) ABG O2 Content ABG Base Excess Dat Test Oxygen Flow Rate Sodium 135 L Potassium 4.7 Chloride 98 Carbon Dioxide 30 Anion Gap 7 L BUN 10 Creatinine 0.8 Creat Clearance w eGFR > 60 POC Glucometer Random Glucose 265 H Lactic Acid Calcium 8.5 Total Bilirubin 1.0 AST 28 ALT 56 Alkaline Phosphatase 84 Total Protein 7.1 Albumin 3.3 L Lipase Cancelled Urine Color Yellow Urine Appearance Clear Urine pH 6.0 Ur Specific [place] 1.035 Urine Protein Negative Urine Glucose (UA) 3+ H Urine Ketones Trace H Urine Blood Negative Urine Nitrite Negative Urine Bilirubin Negative Urine Urobilinogen Negative Ur Leukocyte Esterase Negative 10/18/17 10/18/17 10/18/17 21:33 23:27 23:38 WBC RBC Hgb Hct MCV MCH MCHC RDW Plt Count MPV Neutrophils % Lymphocytes % Monocytes % Eosinophils % Basophils % PT with INR INR Puncture Site Right radial ABG pH 7.36 ABG pCO2 at Pt Temp 42.8 ABG pO2 at Pt Temp 63.5 L ABG HCO3 23.9 ABG O2 Sat (Measured) 91.8 ABG O2 Content 19.0 ABG Base Excess -1.0 Dat Test Positive Oxygen Flow Rate No Sodium Potassium Chloride Carbon Dioxide Anion Gap BUN Creatinine Creat Clearance w eGFR POC Glucometer [phone] Random Glucose Lactic Acid 1.3 Calcium Total Bilirubin AST ALT Alkaline Phosphatase Total Protein Albumin Lipase Urine Color Urine Appearance Urine pH Ur Specific [place] Urine Protein Urine Glucose (UA) Urine Ketones Urine Blood Urine Nitrite Urine Bilirubin Urine Urobilinogen Ur Leukocyte Esterase 10/19/17 10/19/17 06:30 06:30 WBC 5.0 RBC 5.56 Hgb 15.5 Hct 48.1 MCV 86.5 MCH 27.9 MCHC 32.3 RDW 13.4 Plt Count 152 MPV 9.3 Neutrophils % 53.3 Lymphocytes % 29.7 D Monocytes % 15.2 H Eosinophils % 1.2 Basophils % 0.6 PT with INR INR Puncture Site ABG pH ABG pCO2 at Pt Temp ABG pO2 at Pt Temp ABG HCO3 ABG O2 Sat (Measured) ABG O2 Content ABG Base Excess Dat Test Oxygen Flow Rate Sodium 134 L Potassium 4.6 Chloride 100 Carbon Dioxide 25 Anion Gap 9 BUN 12 Creatinine 0.9 Creat Clearance w eGFR POC Glucometer Random Glucose 280 H Lactic Acid Calcium 7.9 L Total Bilirubin AST ALT Alkaline Phosphatase Total Protein Albumin Lipase Urine Color Urine Appearance Urine pH Ur Specific [place] Urine Protein Urine Glucose (UA) Urine Ketones Urine Blood Urine Nitrite Urine Bilirubin Urine Urobilinogen Ur Leukocyte Esterase Active Medications Generic Name Dose Route Start Last Admin Trade Name Freq PRN Reason Stop Dose Admin Heparin Sodium (Porcine) 5,000 unit 10/18/17 23:15 10/18/17 23:10 Heparin - SQ 5,000 unit BID JOANNA Administration Sodium Chloride 1,000 mls @ 100 mls/hr 10/18/17 23:00 10/18/17 23:03 Normal Saline - IV 100 mls/hr ASDIR JOANNA Administration Levofloxacin 750 mg in 150 mls @ 150 mls/hr 10/19/17 21:00 Levaquin 750 Mg Premixed Ivpb - IVPB DAILY JOANNA Metronidazole 500 mg in 100 mls @ 100 mls/hr 10/18/17 23:15 10/19/17 04:13 Flagyl 500mg Premixed Ivpb - IVPB 100 mls/hr Q8H-IV JOANNA Administration Insulin Aspart 1 vial 10/19/17 07:00 Novolog Vial Sliding Scale - SQ ACHS [facility] Protocol Oseltamivir Phosphate 75 mg 10/19/17 10:00 Tamiflu - PO 10/24/17 09:59 BID JOANNA Microbiology 10/18/17 11:35 Nasopharyngeal Swab Influenza Types A,B Antigen ([place]) - Final 10/18/17 11:35 Nasopharyngeal Swab - Final EKG 10/18 - Sinus tachy, NAD, rate of 102, QTC 419, No T wave or St changes Ab/pelvis CT scan 10/18 - IMPRESSION: Mild eccentric wall thickening is seen within the mid sigmoid colon with probable minimal associated pericolonic edema. Multiple diverticula are noted. The CT appearance is suggestive of acute uncomplicated diverticulitis. Correlation with colonoscopy or barium radiography is suggested when the patient's clinical condition permits. Diffuse hepatic steatosis. CXR 10/18 - No definite interval change is identified in comparison to a previous radiographic study of 2013. If there is ongoing symptomatology CT evaluation may be performed, nonemergent unless otherwise clinically indicated. ASSESSMENT/PLAN: 47 y/o M with PMH diverticulitis, IDDM, who presents to the ED w/ abdominal pain x 1 week precipitated by multiple bouts of diarrhea. Pt has been admitted to med surg for image-confirmed acute diverticulitis, being treated on abx regimen of levaquin/flagyl. #Sepsis secondary to acute diverticulitis - febrile to 102 on admission, w/ tachy to 101; febrile to 102.6; no wbc count - Flagyl 500mg q8h, levaquin 500mg IV for abx coverage; Day 2 of coverage - NPO for bowel rest - Morphine 2mg q4h for pain control - Qtc 419 on EKG on admission - IVFs - Tylenol for fever, pain - Zofran 4mg q4h prn for n/v - Trend WBC, fever curve #Influenza B - positive; receive one dose of tamiflu in ED - tamiflu 75mg PO BID; 5 day course - droplet precautions #IDDM -ISS ACHS -BGM - Hold oral agents #PPX HSQ #FEN NS 100 cc/hr Daily BMP NPO Med-surg for further monitoring Plan discussed with attending, Dr. Kodi Araujo, PGY1 Visit type - Emergency Visit Emergency Visit: Yes ED Registration Date: 10/18/17 Care time: The patient presented to the Emergency Department on the above date and was hospitalized for further evaluation of their emergent condition. - New Patient This patient is new to me today: Yes Date on this admission: 10/19/17 - Critical Care Critical Care patient: No
[2017-10-19] MEDS: INSULIN SLIDING SCALE (NOVOLOG) 1 VIAL SQ SCH ×4 (09:00→21:45)
[2017-10-19] MEDS: HEPARIN NA (PORCINE) 5,000 UNITS/ML 1ML VIAL SQ SCH ×2 (09:37→21:43)
[2017-10-19] MEDS: OSELTAMIVIR PHOSPHATE 75 MG CAPSULE PO SCH ×2 (09:37→21:42)
[2017-10-19] MEDS ORDERED: MORPHINE SULFATE 10 MG/1 ML *VIAL ONE (09:40)
[2017-10-19] MEDS ORDERED: MORPHINE SULFATE 10 MG/1 ML *VIAL IVPUSH ONE (09:45)
--- NOTE | 2017-10-19 12:08 | EKG ---
Test Reason : Blood Pressure : / mmHG Vent. Rate : 102 BPM Atrial Rate : 102 BPM P-R Int : 164 ms QRS Dur : 080 ms QT Int : 322 ms P-R-T Axes : 045 037 023 degrees QTc Int : 419 ms SINUS TACHYCARDIA OTHERWISE NORMAL ECG WHEN COMPARED WITH ECG OF 14-OCT-2014 16:46, NO SIGNIFICANT CHANGE WAS FOUND Confirmed by DAMI MEJIA MD ([id number]) on 10/19/2017 12:08:42 PM Referred By: Confirmed By:DAMI MEJIA MD
[2017-10-19] MEDS ORDERED: MORPHINE SULFATE 10 MG/1 ML *VIAL IVPUSH PRN ×2 (12:58→13:44)
[2017-10-19] MEDS ORDERED: INSULIN (NOVOLOG) ASPART 100 UNITS/ML 10ML VIAL ONE (13:17)
[2017-10-19] MEDS: SODIUM CHLORIDE 1,000 ML IV SCH ×2 (13:30→23:05)
[2017-10-19] MEDS ORDERED: ACETAMINOPHEN INJECTION 100 ML IVPB ONE (14:52)
[2017-10-19] MEDS: ACETAMINOPHEN 1000 MG/100 ML VIAL (NON FORMULARY) IVPB PRN (14:55)
--- NOTE | 2017-10-19 15:01 | PN ---
Teaching Attending Note Name of Resident: Magnus Araujo ATTENDING PHYSICIAN STATEMENT I saw and evaluated the patient. I reviewed the resident's note and discussed the case with the resident. I agree with the resident's findings and plan as documented. SUBJECTIVE:c/o abdominal pain. some relief with pain medications but continue to have significant pain. has non-productive cough. some aches but those are slightly better. denies Cp, SOB, fever, chills, N/V/C/D had colonoscopy after last episode of diverticulitis and told he had small holes ? mother was hospitalized with + flu on Monday. OBJECTIVE: Last Vital Signs Temp Pulse Resp BP Pulse Ox 98.6 F 87 20 131/85 98 10/19/17 07:29 10/19/17 08:11 10/19/17 08:11 10/19/17 08:11 10/19/17 07:29 General mild distress due to pain CV S1 S2 RRR no murmur/rub/gallop Lungs poor inspiratory effort no crackles or wheezing Abdomen soft +RLQ/LLQ hypoactive BS Extremities no pedal edema ASSESSMENT AND PLAN: 47yo M with PMH diverticulits in 2014 and DM presented to the ER wtih cough, myalgia and abodminal pain found to be septic with acute diverticulitis and flu B B 1. Sepsis due to diverticulitis and Influenza B- Tm 102. continues to have abdominal pain. will make NPO for now for bowel rest. cont IVF, Flagyl/Levaquin and Tamiflu day 1. pain and nausea control 2. DM- uncontrolled likely due to sepsis. cont BGM Q6H, iss. hold oral agents 3. DVT ppx- Hep sq
[2017-10-19] MEDS ORDERED: ONDANSETRON 4 MG/2 ML VIAL ONE (15:22)
[2017-10-19] MEDS: ONDANSETRON 4 MG/2 ML VIAL IVPUSH PRN (15:23)
[2017-10-19 18:32] VITALS: BMI 46.4
[2017-10-19] MEDS ORDERED: ACETAMINOPHEN 1000 MG/100 ML VIAL (NON FORMULARY) IVPB ONE ×3 (18:45→22:00)
[2017-10-19] MEDS ORDERED: PT OWN MED DRAWER 7, Y5N ONE (19:21)
[2017-10-19] MEDS ORDERED: ACETAMINOPHEN 500 MG TABLET (FP) PO ONE (20:30)
[2017-10-20] MEDS: ACETAMINOPHEN 1000 MG/100 ML VIAL (NON FORMULARY) IVPB PRN ×2 (05:08→18:42)
[2017-10-20] MEDS: ONDANSETRON 4 MG/2 ML VIAL IVPUSH PRN (05:09)
--- NOTE | 2017-10-20 05:21 | PN ---
Physical Exam: SUBJECTIVE: Patient seen and examined by me this am - No major overnight events. Pt with small amount of nonbloody, nonbilious emesis overnight. Febrile yesterday in PM to 102.6. Ordered for IV tylenol and zofran for fever, nausea. - Pt febrile overnight. Flatus x2, no BMs. No change in pain level. Still with cough. Denies JONES/dizziness, CP, SOB, rashes, peripheral swelling/numbness/ weakness. PM: - Pt with one episode of cough-induced nonbloody, nonbilious emesis. One episode of diarrhea also in PM, no melena or hematochezia. Started on clears OBJECTIVE: Vital Signs Intake & Output 10/17/17 10/18/17 10/19/17 10/20/17 23:59 23:59 23:59 23:59 Intake Total 1000 1850 Balance 1000 1850 Weight 151.953 kg 151.046 kg Period Temp Pulse Resp BP Sys/Yeung Pulse Ox Last 24 Hr 98.4 F-102.6 F 85-101 16-20 113-143/63-94 92-98 GENERAL: Obese middle-aged man is awake, alert, and fully oriented, laying in bed, uncomfortable HEAD: Normal with no signs of trauma. EYES: PERRL, extraocular movements intact, sclera anicteric, conjunctiva clear. No ptosis. ENT: Ears normal, nares patent, oropharynx clear without exudates, moist mucous membranes. NECK: Trachea midline, full range of motion, supple. LUNGS: Breath sounds equal, clear to auscultation bilaterally, no wheezes, no crackles, no accessory muscle use. HEART: Regular rate and rhythm, S1, S2 without murmur, rub or gallop. ABDOMEN: Still w/ Distended abdomen; Pain to superficial and deep palpation in all 4 quadrants, greater in LLQ/RLQ. positive Rebound tenderness. Voluntary guarding. Normoactive bowel sounds. No organomegaly or masses noted. EXTREMITIES: 2+ pulses, warm, well-perfused, no edema. NEUROLOGICAL: Cranial nerves II through XII grossly intact. Normal speech, gait not observed. PSYCH: Normal mood, normal affect. SKIN: Warm, dry, normal turgor, no rashes or lesions noted Laboratory Results - last 24 hr CBC, BMP 10/20/17 07:14 10/20/17 07:14 10/19/17 06:30 10/19/17 06:30 10/19/17 10/19/17 10/19/17 06:30 06:30 08:52 WBC 5.0 RBC 5.56 Hgb 15.5 Hct 48.1 MCV 86.5 MCH 27.9 MCHC 32.3 RDW 13.4 Plt Count 152 MPV 9.3 Neutrophils % 53.3 Lymphocytes % 29.7 D Monocytes % 15.2 H Eosinophils % 1.2 Basophils % 0.6 Sodium 134 L Potassium 4.6 Chloride 100 Carbon Dioxide 25 Anion Gap 9 BUN 12 Creatinine 0.9 POC Glucometer [phone] Random Glucose 280 H Calcium 7.9 L 10/19/17 10/19/17 10/19/17 13:06 16:53 21:41 WBC RBC Hgb Hct MCV MCH MCHC RDW Plt Count MPV Neutrophils % Lymphocytes % Monocytes % Eosinophils % Basophils % Sodium Potassium Chloride Carbon Dioxide Anion Gap BUN Creatinine POC Glucometer [phone] Random Glucose Calcium Active Medications Generic Name Dose Route Start Last Admin Trade Name Freq PRN Reason Stop Dose Admin Acetaminophen 1,000 mg 10/19/17 14:49 10/20/17 05:08 Ofirmev Injection - IVPB 1,000 mg Q6H PRN Administration FEVER Heparin Sodium (Porcine) 5,000 unit 10/18/17 23:15 10/19/17 21:43 Heparin - SQ 5,000 unit BID JOANNA Administration Sodium Chloride 1,000 mls @ 100 mls/hr 10/18/17 23:00 10/19/17 23:05 Normal Saline - IV Not Given ASDIR JOANNA Levofloxacin 750 mg in 150 mls @ 150 mls/hr 10/19/17 21:00 10/19/17 21:45 Levaquin 750 Mg Premixed Ivpb - IVPB 150 mls/hr DAILY JOANNA Administration Metronidazole 500 mg in 100 mls @ 100 mls/hr 10/18/17 23:15 10/20/17 01:04 Flagyl 500mg Premixed Ivpb - IVPB 100 mls/hr Q8H-IV JOANNA Administration Insulin Aspart 1 vial 10/19/17 07:00 10/19/17 21:45 Novolog Vial Sliding Scale - SQ Not Given ACHS JOANNA Protocol Morphine Sulfate 2 mg 10/19/17 13:44 Morphine Injection - IVPUSH Q4H PRN PAIN LEVEL 6-10 Ondansetron HCl 4 mg 10/19/17 14:49 10/20/17 05:09 Zofran Injection IVPUSH 4 mg Q4H PRN Administration NAUSEA AND/OR VOMITING Oseltamivir Phosphate 75 mg 10/19/17 10:00 10/19/17 21:42 Tamiflu - PO 10/24/17 09:59 75 mg BID JOANNA Administration Microbiology 10/18/17 23:00 Blood - Peripheral Venous Blood Culture - Preliminary NO GROWTH OBTAINED AFTER 24 HOURS, INCUBATION TO CONTINUE FOR 4 DAYS. 10/18/17 23:00 Blood - Peripheral Venous Blood Culture - Preliminary NO GROWTH OBTAINED AFTER 24 HOURS, INCUBATION TO CONTINUE FOR 4 DAYS. 10/18/17 11:35 Nasopharyngeal Swab Influenza Types A,B Antigen ([place]) - Final 10/18/17 11:35 Nasopharyngeal Swab - Final EKG 10/18 - Sinus tachy, NAD, rate of 102, QTC 419, No T wave or St changes Ab/pelvis CT scan 10/18 - IMPRESSION: Mild eccentric wall thickening is seen within the mid sigmoid colon with probable minimal associated pericolonic edema. Multiple diverticula are noted. The CT appearance is suggestive of acute uncomplicated diverticulitis. Correlation with colonoscopy or barium radiography is suggested when the patient's clinical condition permits. Diffuse hepatic steatosis. CXR 10/18 - No definite interval change is identified in comparison to a previous radiographic study of 2013. If there is ongoing symptomatology CT evaluation may be performed, nonemergent unless otherwise clinically indicated. EKG 10/20 - NSR, rate 77, NAD, QTC 441, no ST/TW changes ASSESSMENT/PLAN: 47 y/o M with PMH diverticulitis, IDDM, who presents to the ED w/ abdominal pain x 1 week precipitated by multiple bouts of diarrhea. Pt has been admitted to med surg for image-confirmed acute diverticulitis, being treated on abx regimen of levaquin/flagyl. #Sepsis secondary to acute diverticulitis - Tmax 99.8 overnight; no wbc count - Flagyl 500mg q8h, levaquin 500mg IV for abx coverage; Day 3 of coverage - Trial of clears today given improvement in pain; will revert to NPO if pain worse with PO intake - Morphine 2mg q4h for pain control - Qtc 441 on repeat EKG this AM - IVFs - Tylenol for fever, pain - Zofran 4mg q4h prn for n/v - Trend WBC, fever curve #Influenza B - positive; receive one dose of tamiflu in ED - tamiflu 75mg PO BID; Day 2 of 5 day course - droplet precautions #IDDM -ISS ACHS -BGM - Hold oral agents #PPX HSQ #FEN NS 100 cc/hr Daily BMP Trial of clears Med-surg for further monitoring Plan discussed with attending, Dr. Kodi Araujo, PGY1 Visit type - Emergency Visit Emergency Visit: Yes ED Registration Date: 10/18/17 Care time: The patient presented to the Emergency Department on the above date and was hospitalized for further evaluation of their emergent condition. - New Patient This patient is new to me today: No - Critical Care Critical Care patient: No
[2017-10-20] MEDS: INSULIN SLIDING SCALE (NOVOLOG) 1 VIAL SQ SCH ×4 (06:32→21:27)
[2017-10-20] MEDS ORDERED: INSULIN (NOVOLOG) ASPART 100 UNITS/ML 10ML VIAL ONE ×3 (06:34→21:01)
[2017-10-20 07:28] LABS: BASO % 0.7 % (0-2.0); EOS % 0.4 % (0-4.5); HEMATOCRIT 46.3 % (35.4-49); LYMPH % 34.9 % (8-40); MCH 27.7 pg (25.7-33.7); MCHC 32.4 g/dl (32.0-35.9); MEAN CELL VOLUME 85.6 fl (80-96); MEAN PLT VOLUME 9.3 fl (7.5-11.1); MONO % 18.6 % (3.8-10.2); NEUT % 45.4 % (42.8-82.8); PLATELET COUNT 149 K/MM3 (134-434); RBC 5.41 M/mm3 (4.00-5.60); WHITE BLOOD COUNT 4.1 K/mm3 (4.0-10.0)
[2017-10-20 07:54] LABS: ALBUMIN 2.9 g/dl (3.4-5.0); ANION GAP 9 (8-16); BLOOD UREA NITROGEN 9 mg/dL (7-18); CALCIUM 7.8 mg/dL (8.5-10.1); CHLORIDE 97 mmol/L (98-107); CO2 28 mmol/L (21-32); GLUCOSE,RANDOM 248 mg/dL (74-106); POTASSIUM 4.2 mmol/L (3.5-5.1); SODIUM 134 mmol/L (136-145)
[2017-10-20 07:58] LABS: ALK PHOS 78 U/L (45-117); CREATININE 0.8 mg/dL (0.7-1.3); SGOT/AST 41 U/L (15-37); SGPT/ALT 55 U/L (12-78); TOT PROT 6.5 g/dl (6.4-8.2)
[2017-10-20] MEDS ORDERED: PT OWN MED DRAWER 7, Y5N ONE ×2 (10:45→17:53)
[2017-10-20] MEDS: HEPARIN NA (PORCINE) 5,000 UNITS/ML 1ML VIAL SQ SCH ×2 (10:59→21:27)
[2017-10-20] MEDS: OSELTAMIVIR PHOSPHATE 75 MG CAPSULE PO SCH ×2 (11:00→21:27)
--- NOTE | 2017-10-20 11:51 | PN ---
Teaching Attending Note Name of Resident: Magnus Araujo ATTENDING PHYSICIAN STATEMENT I saw and evaluated the patient. I reviewed the resident's note and discussed the case with the resident. I agree with the resident's findings and plan as documented. SUBJECTIVE:continues to have diffuse abdominal pain but worse in the lower abdominal area. 1 episode of vomiting but requesting to eat. cough has resolved. denies CP, SOB, fever, chills. 1 hard BM earlier today. negative for blood OBJECTIVE: Last Vital Signs Temp Pulse Resp BP Pulse Ox 99.2 F 76 20 144/82 95 10/20/17 05:00 10/20/17 05:30 10/20/17 05:00 10/20/17 05:00 10/20/17 05:30 General mild distress due to pain Lungs CTA B/L no wheezing/rales/rhonchi Abdomen soft +RLQ/LLQ hypoactive BS Extremities no pedal edema ASSESSMENT AND PLAN: 47yo M with PMH diverticulits in 2014 and DM presented to the ER wtih cough, myalgia and abodminal pain found to be septic with acute diverticulitis and flu B B 1. Sepsis due to diverticulitis and Influenza B- Tm 102.6. continues to have abdominal pain but not requesting for pain medicaitions. encouraged to request if needed. informed will re-evaluate later in the day if pain is improved and no more vomiting can advance to clear liquid diet. cont IVF, Flagyl/Levaquin and Tamiflu day 2. pain and nausea control 2. DM- uncontrolled likely due to sepsis. cont BGM Q6H, iss. hold oral agents 3. Morbid obesity- BMI 46. lifestyle modifications 4. DVT ppx- Hep sq
--- NOTE | 2017-10-20 14:07 | EKG ---
Test Reason : Blood Pressure : / mmHG Vent. Rate : 077 BPM Atrial Rate : 077 BPM P-R Int : 176 ms QRS Dur : 084 ms QT Int : 390 ms P-R-T Axes : 047 030 022 degrees QTc Int : 441 ms NORMAL SINUS RHYTHM NORMAL ECG WHEN COMPARED WITH ECG OF 18-OCT-2017 21:02, NO SIGNIFICANT CHANGE WAS FOUND Confirmed by HARESH TUCKER MD ([id number]) on 10/20/2017 2:06:35 PM Referred By: Confirmed By:HARESH TUCKER MD
[2017-10-21] MEDS: SODIUM CHLORIDE 1,000 ML IV SCH (05:49)
[2017-10-21] MEDS: ONDANSETRON 4 MG/2 ML VIAL IVPUSH PRN (06:07)
[2017-10-21] MEDS: INSULIN SLIDING SCALE (NOVOLOG) 1 VIAL SQ SCH ×4 (06:07→23:05)
[2017-10-21 07:36] LABS: HEMATOCRIT 48.2 % (35.4-49); HEMOGLOBIN 15.6 GM/dL (11.7-16.9); MCH 27.6 pg (25.7-33.7); MCHC 32.4 g/dl (32.0-35.9); MEAN CELL VOLUME 85.2 fl (80-96); MEAN PLT VOLUME 9.3 fl (7.5-11.1); PLATELET COUNT 181 K/MM3 (134-434); RBC 5.66 M/mm3 (4.00-5.60); RDW 13.1 % (11.9-15.9); WHITE BLOOD COUNT 4.7 K/mm3 (4.0-10.0)
[2017-10-21 08:22] LABS: ALBUMIN 3.1 g/dl (3.4-5.0); ANION GAP 8 (8-16); BLOOD UREA NITROGEN 8 mg/dL (7-18); CALCIUM 7.6 mg/dL (8.5-10.1); CHLORIDE 98 mmol/L (98-107); CO2 27 mmol/L (21-32); GLUCOSE,RANDOM 227 mg/dL (74-106); MAGNESIUM 1.8 mg/dL (1.8-2.4); POTASSIUM 4.3 mmol/L (3.5-5.1); SODIUM 133 mmol/L (136-145)
[2017-10-21 08:25] LABS: ALK PHOS 80 U/L (45-117); BILIRUBIN,TOTAL 0.7 mg/dL (0.2-1.0); CREATININE 0.8 mg/dL (0.7-1.3); PHOSPHOROUS 2.2 mg/dL (2.5-4.9); SGOT/AST 48 U/L (15-37); SGPT/ALT 58 U/L (12-78); TOT PROT 6.9 g/dl (6.4-8.2)
[2017-10-21] MEDS: HEPARIN NA (PORCINE) 5,000 UNITS/ML 1ML VIAL SQ SCH ×2 (09:30→23:05)
[2017-10-21] MEDS: OSELTAMIVIR PHOSPHATE 75 MG CAPSULE PO SCH ×2 (09:30→23:06)
--- NOTE | 2017-10-21 13:46 | PN ---
Progress Note (short form) - Note Progress Note: c/o some nausea this AM. was able to tolerate breakfast. some abdominal pain but improved. cough and myalgia has resolved. denies CP, SOB, fever, chills, C/D Current Medications Generic Name Dose Route Start Last Admin Trade Name Freq PRN Reason Stop Dose Admin Acetaminophen 1,000 mg 10/19/17 14:49 10/20/17 18:42 Ofirmev Injection - IVPB 1,000 mg Q6H PRN Administration FEVER Heparin Sodium (Porcine) 5,000 unit 10/18/17 23:15 10/21/17 09:30 Heparin - SQ 5,000 unit BID JOANNA Administration Sodium Chloride 1,000 mls @ 100 mls/hr 10/18/17 23:00 10/21/17 05:49 Normal Saline - IV 100 mls/hr ASDIR JOANNA Administration Levofloxacin 750 mg in 150 mls @ 150 mls/hr 10/19/17 21:00 10/21/17 09:30 Levaquin 750 Mg Premixed Ivpb - IVPB 150 mls/hr DAILY JOANNA Administration Metronidazole 500 mg in 100 mls @ 100 mls/hr 10/18/17 23:15 10/21/17 09:30 Flagyl 500mg Premixed Ivpb - IVPB 100 mls/hr Q8H-IV JOANNA Administration Insulin Aspart 1 vial 10/19/17 07:00 10/21/17 11:36 Novolog Vial Sliding Scale - SQ 6 units ACHS JOANNA Administration Protocol Morphine Sulfate 2 mg 10/19/17 13:44 Morphine Injection - IVPUSH Q4H PRN PAIN LEVEL 6-10 Ondansetron HCl 4 mg 10/19/17 14:49 10/21/17 06:07 Zofran Injection IVPUSH 4 mg Q4H PRN Administration NAUSEA AND/OR VOMITING Oseltamivir Phosphate 75 mg 10/19/17 10:00 10/21/17 09:30 Tamiflu - PO 10/24/17 09:59 75 mg BID JOANNA Administration Last Vital Signs Temp Pulse Resp BP Pulse Ox 98.2 F 88 18 127/68 95 10/21/17 10:00 10/21/17 10:00 10/21/17 10:00 10/21/17 10:00 10/21/17 10:00 General NAD Lungs CTA B/L no wheezing/rales/rhonchi Abdomen soft +RUQ/LLQ hypoactive BS Extremities no pedal edema CBCD WBC 4.7 K/mm3 (4.0-10.0) 10/21/17 06:30 RBC 5.66 M/mm3 (4.00-5.60) H 10/21/17 06:30 Hgb 15.6 GM/dL (11.7-16.9) 10/21/17 06:30 Hct 48.2 % (35.4-49) 10/21/17 06:30 MCV 85.2 fl (80-96) 10/21/17 06:30 MCHC 32.4 g/dl (32.0-35.9) 10/21/17 06:30 RDW 13.1 % (11.9-15.9) 10/21/17 06:30 Plt Count 181 K/MM3 (134-434) D 10/21/17 06:30 MPV 9.3 fl (7.5-11.1) 10/21/17 06:30 CMP Sodium 133 mmol/L (136-145) L 10/21/17 06:30 Potassium 4.3 mmol/L (3.5-5.1) 10/21/17 06:30 Chloride 98 mmol/L (98-107) 10/21/17 06:30 Carbon Dioxide 27 mmol/L (21-32) 10/21/17 06:30 Anion Gap 8 (8-16) 10/21/17 06:30 BUN 8 mg/dL (7-18) 10/21/17 06:30 Creatinine 0.8 mg/dL (0.7-1.3) 10/21/17 06:30 Creat Clearance w eGFR > 60 (>60) 10/21/17 06:30 Calcium 7.6 mg/dL (8.5-10.1) L 10/21/17 06:30 Total Bilirubin 0.7 mg/dL (0.2-1.0) D 10/21/17 06:30 AST 48 U/L (15-37) H 10/21/17 06:30 ALT 58 U/L (12-78) 10/21/17 06:30 Alkaline Phosphatase 80 U/L (45-117) 10/21/17 06:30 Total Protein 6.9 g/dl (6.4-8.2) 10/21/17 06:30 Albumin 3.1 g/dl (3.4-5.0) L 10/21/17 06:30 ASSESSMENT AND PLAN: 47yo M with PMH diverticulits in 2015 and DM presented to the ER wtih cough, myalgia and abdominal pain found to be septic with acute diverticulitis and flu B B 1. Sepsis due to diverticulitis and Influenza B- afebrile 24H. overall improved but continues to have abdominal pain. believe some may be musculoskeletal from cough. will cont clear liquid diet for now. will re-evaluate tomorrow if improved can try advancing diet. Cont levaquin/flagyl/Tamiflu day 4. pain and nausea control 2. DM- uncontrolled likely due to sepsis. cont BGM Q6H, iss. hold oral agents 3. hypophosphatemia- Neutraphos 4. Morbid obesity- BMI 46. lifestyle modifications 5. DVT ppx- Hep sq Visit type - Emergency Visit Emergency Visit: Yes ED Registration Date: 10/18/17 Care time: The patient presented to the Emergency Department on the above date and was hospitalized for further evaluation of their emergent condition. - New Patient This patient is new to me today: No - Critical Care Critical Care patient: No - Discharge Referral Referred to [facility] Med P.C.: No
[2017-10-21] MEDS ORDERED: NAPH,MB-DB/K PH,MBDB POWDER PACKET PO ONE (14:30)
[2017-10-21] MEDS ORDERED: PT OWN MED DRAWER 7, Y5N ONE (23:02)
[2017-10-21] MEDS ORDERED: OXYMETAZOLINE 0.05% NASAL SOLUTION 15 ML BOTTLE NS ONE (23:27)
[2017-10-22] MEDS: SODIUM CHLORIDE 1,000 ML IV SCH (01:30)
--- NOTE | 2017-10-22 05:30 | PN ---
Physical Exam: SUBJECTIVE: Patient seen and examined by me this AM - No major overnight events. Pain improved, worsened by flatus or BM. Pt tolerating clears, however endorsed mild nausea w/ food at dinnertime. Afebrile overnight. Pt with 4 BM yesterday, all nonbloody diarrhea. Pt with BM last night , then subsequently felt an episode of lower abdominal pain, w/ dizziness and became very diaphoretic. Pt states he sat on toilet for 2 hours in this state and eventually able to walk back to bed, found by nursing. Pt educated to call for assistance if he feels unsteady when ambulating. - vitals stable. Still with cough, nasal congestion; occasional dyspnea OBJECTIVE: Vital Signs Intake & Output 10/19/17 10/20/17 10/21/17 10/22/17 23:59 23:59 23:59 23:59 Intake Total 2140 515 7030 Balance 4251 523 0554 Weight 151.046 kg Period Temp Pulse Resp BP Sys/Yeung Pulse Ox Last 24 Hr 97 F-98.9 F 76-88 18-20 111-145/68-89 95-97 GENERAL: Obese man is awake, alert, and fully oriented, laying in bed, resting comfortably HEAD: Normal with no signs of trauma. EYES: PERRL, extraocular movements intact, sclera anicteric, conjunctiva clear. No ptosis. ENT: Ears normal, nares patent, oropharynx clear without exudates, moist mucous membranes. NECK: Trachea midline, full range of motion, supple. LUNGS: Breath sounds equal, clear to auscultation bilaterally, no wheezes, no crackles, no accessory muscle use. HEART: Regular rate and rhythm, S1, S2 without murmur, rub or gallop. ABDOMEN: Distended abdomen; Mild tenderness to palpation in LLQ/RLQ. No rebound tenderness or guarding. Normoactive bowel sounds. No organomegaly or masses noted. No CVA tenderness. EXTREMITIES: 2+ pulses, warm, well-perfused, no edema. NEUROLOGICAL: Cranial nerves II through XII grossly intact. Normal speech, gait not observed. PSYCH: Normal mood, normal affect. SKIN: Warm, dry, normal turgor, no rashes or lesions noted Laboratory Results - last 24 hr CBC, BMP 10/21/17 06:30 10/22/17 06:30 10/21/17 06:30 10/21/17 06:30 10/21/17 10/21/17 10/21/17 05:52 06:30 06:30 WBC 4.7 RBC 5.66 H Hgb 15.6 Hct 48.2 MCV 85.2 MCH 27.6 MCHC 32.4 RDW 13.1 Plt Count 181 D MPV 9.3 Sodium 133 L Potassium 4.3 Chloride 98 Carbon Dioxide 27 Anion Gap 8 BUN 8 Creatinine 0.8 Creat Clearance w eGFR > 60 POC Glucometer 209 Random Glucose 227 H Calcium 7.6 L Phosphorus 2.2 L Magnesium 1.8 Total Bilirubin 0.7 D AST 48 H ALT 58 Alkaline Phosphatase 80 Total Protein 6.9 Albumin 3.1 L 10/21/17 10/21/17 10/21/17 11:29 16:49 23:04 WBC RBC Hgb Hct MCV MCH MCHC RDW Plt Count MPV Sodium Potassium Chloride Carbon Dioxide Anion Gap BUN Creatinine Creat Clearance w eGFR POC Glucometer 290 257 222 Random Glucose Calcium Phosphorus Magnesium Total Bilirubin AST ALT Alkaline Phosphatase Total Protein Albumin Active Medications Generic Name Dose Route Start Last Admin Trade Name Freq PRN Reason Stop Dose Admin Acetaminophen 1,000 mg 10/19/17 14:49 10/20/17 18:42 Ofirmev Injection - IVPB 1,000 mg Q6H PRN Administration FEVER Heparin Sodium (Porcine) 5,000 unit 10/18/17 23:15 10/21/17 23:05 Heparin - SQ 5,000 unit BID JOANNA Administration Sodium Chloride 1,000 mls @ 100 mls/hr 10/18/17 23:00 10/22/17 01:30 Normal Saline - IV 100 mls/hr ASDIR JOANNA Administration Levofloxacin 750 mg in 150 mls @ 150 mls/hr 10/19/17 21:00 10/21/17 09:30 Levaquin 750 Mg Premixed Ivpb - IVPB 150 mls/hr DAILY JOANNA Administration Metronidazole 500 mg in 100 mls @ 100 mls/hr 10/18/17 23:15 10/22/17 01:30 Flagyl 500mg Premixed Ivpb - IVPB 100 mls/hr Q8H-IV JOANNA Administration Insulin Aspart 1 vial 10/19/17 07:00 10/21/17 23:05 Novolog Vial Sliding Scale - SQ 4 units ACHS JOANNA Administration Protocol Morphine Sulfate 2 mg 10/19/17 13:44 Morphine Injection - IVPUSH Q4H PRN PAIN LEVEL 6-10 Ondansetron HCl 4 mg 10/19/17 14:49 10/21/17 06:07 Zofran Injection IVPUSH 4 mg Q4H PRN Administration NAUSEA AND/OR VOMITING Oseltamivir Phosphate 75 mg 10/19/17 10:00 10/21/17 23:06 Tamiflu - PO 10/24/17 09:59 75 mg BID JOANNA Administration Microbiology 10/18/17 23:00 Blood - Peripheral Venous Blood Culture - Preliminary NO GROWTH OBTAINED AFTER 72 HOURS, INCUBATION TO CONTINUE FOR 2 DAYS. 10/18/17 23:00 Blood - Peripheral Venous Blood Culture - Preliminary NO GROWTH OBTAINED AFTER 72 HOURS, INCUBATION TO CONTINUE FOR 2 DAYS. 10/18/17 04:30 Urine - Urine Clean Catch Urine Culture - Final 10/18/17 11:35 Nasopharyngeal Swab Influenza Types A,B Antigen ([place]) - Final 10/18/17 11:35 Nasopharyngeal Swab - Final EKG 10/18 - Sinus tachy, NAD, rate of 102, QTC 419, No T wave or St changes Ab/pelvis CT scan 10/18 - IMPRESSION: Mild eccentric wall thickening is seen within the mid sigmoid colon with probable minimal associated pericolonic edema. Multiple diverticula are noted. The CT appearance is suggestive of acute uncomplicated diverticulitis. Correlation with colonoscopy or barium radiography is suggested when the patient's clinical condition permits. Diffuse hepatic steatosis. CXR 10/18 - No definite interval change is identified in comparison to a previous radiographic study of 2013. If there is ongoing symptomatology CT evaluation may be performed, nonemergent unless otherwise clinically indicated. EKG 10/20 - NSR, rate 77, NAD, QTC 441, no ST/TW changes ASSESSMENT/PLAN: 47 y/o M with PMH diverticulitis, IDDM, who presents to the ED w/ abdominal pain x 1 week precipitated by multiple bouts of diarrhea. Pt has been admitted to med surg for image-confirmed acute diverticulitis, being treated on abx regimen of levaquin/flagyl. #Sepsis secondary to acute diverticulitis - Afebrile, no wbc count; multiple bouts of nonbloody diarrhea in last 24 hours - Flagyl 500mg q8h, levaquin 500mg IV for abx coverage; Day 5 of coverage - Tolerating clears with occasional N/V - Still w/ diarrhea - Morphine 2mg q4h for pain control - Qtc 441 on repeat EKG this AM - IVFs - Tylenol for fever, pain - Zofran 4mg q4h prn for n/v - Trend WBC, fever curve #Influenza B - positive; receive one dose of tamiflu in ED - tamiflu 75mg PO BID; Day 5 - droplet precautions #IDDM - reconfirmed meds at pt pharmacy today; Only on Januvia at home - Starting levemir 30u qHs tonight - ISS ACHS - BGM - Hold oral agents #Hypomagnesemia - 1.7 this AM - Repleted this AM 2g - Trend #Morbid Obesity - Counseling on diet, exercise for weight loss - Outpt management #PPX HSQ #FEN PO hydration Daily BMP Clear liquid diet Discharge home tomorrow on oral abx and outpt follow-up. Plan discussed with attending, Dr. Kodi Araujo, PGY1 Visit type - Emergency Visit Emergency Visit: Yes ED Registration Date: 10/18/17 Care time: The patient presented to the Emergency Department on the above date and was hospitalized for further evaluation of their emergent condition. - New Patient This patient is new to me today: No - Critical Care Critical Care patient: No
[2017-10-22] MEDS: INSULIN SLIDING SCALE (NOVOLOG) 1 VIAL SQ SCH ×4 (06:16→22:29)
[2017-10-22 08:16] LABS: ANION GAP 9 (8-16); BLOOD UREA NITROGEN 7 mg/dL (7-18); CALCIUM 7.6 mg/dL (8.5-10.1); CHLORIDE 100 mmol/L (98-107); CO2 26 mmol/L (21-32); GLUCOSE,RANDOM 245 mg/dL (74-106); MAGNESIUM 1.7 mg/dL (1.8-2.4); POTASSIUM 3.7 mmol/L (3.5-5.1); SODIUM 135 mmol/L (136-145)
[2017-10-22 08:19] LABS: CREATININE 0.8 mg/dL (0.7-1.3); PHOSPHOROUS 2.7 mg/dL (2.5-4.9)
[2017-10-22] MEDS ORDERED: MAGNESIUM 2GM/50ML STERILE WATER IVPB IVPB ONE (09:30)
[2017-10-22] MEDS ORDERED: PT OWN MED DRAWER 7, Y5N ONE ×2 (09:43→22:17)
[2017-10-22] MEDS: HEPARIN NA (PORCINE) 5,000 UNITS/ML 1ML VIAL SQ SCH ×2 (09:54→22:29)
[2017-10-22] MEDS: OSELTAMIVIR PHOSPHATE 75 MG CAPSULE PO SCH ×2 (09:55→22:29)
--- NOTE | 2017-10-22 12:49 | PN ---
Teaching Attending Note Name of Resident: Magnus Araujo ATTENDING PHYSICIAN STATEMENT I saw and evaluated the patient. I reviewed the resident's note and discussed the case with the resident. I agree with the resident's findings and plan as documented. SUBJECTIVE:feeling weak and tired. became very diaphoretic during a BM last night where he felt like he almost passed out. has had 3 loose BM today. tolerating diet however is unable to eat more than 50% of his meal. denies Cp, SOB, fever, chills, N/V/C/D OBJECTIVE: Last Vital Signs Temp Pulse Resp BP Pulse Ox 98.2 F 87 18 111/78 97 10/22/17 10:00 10/22/17 10:00 10/22/17 10:00 10/22/17 10:10/22/17 09:00 General lethargic Lungs CTA B/L no wheezing/rale/rhonchi Abdomen soft +RLQ tenderness no rebound or guarding, obese ASSESSMENT AND PLAN: 47yo M with PMH diverticulits in 2014 and DM presented to the ER wtih cough, myalgia and abdominal pain found to be septic with acute diverticulitis and flu B B 1. Sepsis due to diverticulitis and Influenza B- afebrile >24H. continues to have multiple BM. will slowly advance diet. start bacid, Cont levaquin/flagyl/ Tamiflu day 5. pain and nausea control. droplet precuations. should have repeat colonoscopy in 4-6weeks. 2. DM- uncontrolled likely due to sepsis. re-start levemir 30 units tonight. cont BGM Q6H, iss. hold oral agents 3. hypophosphatemia- resolved 4. hypomagnesemia- Mg 5. Morbid obesity- BMI 46. lifestyle modifications. discussed in detail about dietary changes and excercise. goal at least 1 lb per week. informed to monitor sugars as loosing weight as his insulin requirement will likely decrease during this time 6. DVT ppx- Hep sq 7. discharge planning for the morning. verbalized understanding and agreement with plan.,
[2017-10-22] MEDS: LACTOBACILLUS ACIDOPHILUS 1 EACH TAB (FP) PO SCH (14:44)
[2017-10-22] MEDS ORDERED: INSULIN DETEMIR 100 UNITS/ML MDV SQ SCH (22:00)
[2017-10-23] MEDS: INSULIN SLIDING SCALE (NOVOLOG) 1 VIAL SQ SCH ×2 (06:53→11:11)
[2017-10-23] MEDS ORDERED: INSULIN (NOVOLOG) ASPART 100 UNITS/ML 10ML VIAL ONE (06:56)
[2017-10-23] MEDS: HEPARIN NA (PORCINE) 5,000 UNITS/ML 1ML VIAL SQ SCH (09:35)
[2017-10-23] MEDS: LACTOBACILLUS ACIDOPHILUS 1 EACH TAB (FP) PO SCH (09:35)
--- NOTE | 2017-10-23 12:16 | PN ---
Teaching Attending Note Name of Resident: Kasandra Cuellar ATTENDING PHYSICIAN STATEMENT I saw and evaluated the patient. I reviewed the resident's note and discussed the case with the resident. I agree with the resident's findings and plan as documented. SUBJECTIVE:asymptomatic. states he is tolerating diet. BM are more formed and less frequent. deneis Cp, SOB< fever, chills, N/V/C/D OBJECTIVE: Last Vital Signs Temp Pulse Resp BP Pulse Ox 97.9 F 85 18 125/92 97 10/23/17 09:00 10/23/17 09:00 10/23/17 09:00 10/23/17 09:00 10/23/17 09:00 General NAD Abdomen soft +RLQ tenderness no rebound or guarding, obese ASSESSMENT AND PLAN: 47yo M with PMH diverticulits in 2014 and DM presented to the ER wtih cough, myalgia and abdominal pain found to be septic with acute diverticulitis and flu B B 1. Sepsis due to diverticulitis and Influenza B- afebrile. tolerating diet. BM are more formed. no repeat episodes of near syncope during BM. on levaquin/ Flagyl day 6. will need to complete 10 day course. completed tamiflu. should have repeat colonoscopy in 4-6weeks. 2. DM- improved. will re-start home dosing of levemir as tolerating regular diet. advised to monitor sugars closely on new diet as his insulin requirements may be reduced. monitor for signs of hypoglycemia. re-start oral agents 3. hypophosphatemia- resolved 4. hypomagnesemia- resolved 5. Morbid obesity- BMI 46. lifestyle modifications. weight loss discussed at length yesterday 6. DVT ppx- Hep sq 7. d/c home,. needs to f/u with PMD this week and GI in 1 month.
[2017-10-23 14:01] VITALS: BP 132/72; PULSE 77; TEMP 97.7
--- NOTE | 2017-10-23 16:29 | DS ---
Physical Exam: SUBJECTIVE: Patient seen and examined. Pt tolerating diet upgrade. Bowel movements are less frequent and more formed. Pt reports some cramping in RUQ and RLQ, but feels ready to go home. Pt denies chest pain, sob, fever, chills, nausea, vomiting, constipation, diarrhea. OBJECTIVE: Vital Signs Period Temp Pulse Resp BP Sys/Yeung Pulse Ox Last 24 Hr 97.7 F-98.2 F 18-85 18-73 100-132/58-92 95-97 PHYSICAL EXAM GENERAL: The patient is awake, alert, and fully oriented, in no acute distress. LUNGS: Breath sounds equal, clear to auscultation bilaterally, no wheezes, no crackles, no accessory muscle use. HEART: Regular rate and rhythm, S1, S2 without murmur, rub or gallop. ABDOMEN: mildly tender to palpation in RUQ and RLQ. Soft, obese abdomen, nondistended, no guarding. PSYCH: Normal mood, normal affect. SKIN: Warm, dry, normal turgor, no rashes or lesions noted. LABS Laboratory Results - last 24 hr 10/22/17 10/22/17 10/23/17 16:04 21:03 05:57 POC Glucometer 234 276 245 10/23/17 10:55 POC Glucometer 276 HOSPITAL COURSE: Date of Admission:10/18/17 Date of Discharge: 10/23/17 47M with PMH of diverticulitis in 2014 and IDDM, presents with abdominal pain, cough and myalgia, found to be septic 2/2 acute diverticulitis and Influenza B ( +). Pt s/p complete course of Tamiflu. Pt receiving IV antibiotics, and will complete course (total of 10 days) of oral antibiotics on discharge. Pt should f/u for colonoscopy in 4-6 weeks. DM improved, home medications resumed on discharge. Pt engaged in extensive discussion regarding lifestyle modifications for weight loss with Dr. Mariee. 10/18/17 CXR -> nondiscrete infiltrate/pleural effusion noted, no significant change since 04/2014. 10/18/17 Ab/Pelvis CT -> mild eccentric mid-sigmoid colon wall thickening, multiple diverticula noted. Acute uncomplicated diverticulitis. Diffuse hepatic steatosis. Microbiology 10/18/17 23:00 Blood - Peripheral Venous Blood Culture - Preliminary NO GROWTH OBTAINED AFTER 96 HOURS, INCUBATION TO CONTINUE FOR 1 DAYS. 10/18/17 23:00 Blood - Peripheral Venous Blood Culture - Preliminary NO GROWTH OBTAINED AFTER 96 HOURS, INCUBATION TO CONTINUE FOR 1 DAYS. 10/18/17 04:30 Urine - Urine Clean Catch Urine Culture - Final 10/18/17 11:35 Nasopharyngeal Swab Influenza Types A,B Antigen ([place]) - Final 10/18/17 11:35 Nasopharyngeal Swab - Final Pt stable for discharge home. Minutes to complete discharge: 35 Discharge Summary Reason For Visit: TYPE 1 DIABETES MELLITUS WITH HYPERGLYCEMIA Current Active Problems Acute diverticulitis (Acute) Diverticulitis (Acute) Hyperglycemia due to type 1 diabetes mellitus (Acute) Influenza B (Acute) Intractable abdominal pain (Acute) Sepsis (Acute) Condition: Stable - Instructions Diet, Activity, Other Instructions: During your stay you were treated for diverticulitis and Influenza type B. Medications: The following medications were added to your regimen. Please take them as described below: Levaquin 500mg, one pill by mouth, once a day, for four more days (10/24 - 10/27) Metronidazole (Flagyl) 500mg, one pill by mouth, three times a day, for four more days (10/24-10/27) Bacid, one pill by mouth, once a day Please continue taking all other home medication as previously prescribed. Follow-ups: Please schedule an appointment to see your primary care physician in one week for further management of your outpatient medication regimen. If you require a referral for a new primary care physician, a referral to our resident clinic has been provided in your discharge packet. Please call the number provided to schedule an appointment within one week of discharge. Please schedule a colonoscopy in 4-6 weeks for further evaluation of your diverticulosis. If you do not have a director product development, information on one has been provided. Activity: Please abide by a consistent exercise routine of 30 minutes of strenuous exercise at least 5 times per week, with a goal weight loss of 1lb per week. Avoid foods high in saturated fats and refined sugar. Avoid processed foods. You should initially eat a low fiber diet for the next week, Then slowly increase the fiber in your diet. Please avoid alcohol consumption while taking antibiotics. Please return to the hospital if you experience any of the following symptoms: - Worsening abdominal pain - Worsening fevers (temp >101) - Persistent, copious diarrhea or vomiting - Any bloody or black stools - Any new or concerning symptoms Referrals: Kenn Nguyen MD [Staff Physician] - Disposition: HOME - Home Medications Comprehensive Discharge Medication List: Ambulatory Orders Docusate Sodium [Colace -] 100 mg PO DAILY #14 capsule 10/18/17 Insulin Glargine,Hum.rec.anlog [Basaglar Kwikpen U-100] 50 unit SQ HS #5 insuln.pen 10/18/17 Sitagliptin Phosphate [Januvia] 25 mg PO DAILY #10 tab 10/18/17 Lactobacillus Acidophilus [Bacid -] 1 tab PO DAILY #30 tab 10/22/17 levoFLOXacin [Levaquin] 750 mg PO DAILY #4 tab 10/23/17 metroNIDAZOLE [Flagyl -] 500 mg PO TID #14 tablet 10/23/17 This patient is new to me today: Yes Date on this admission: 10/23/17 Emergency Visit: Yes ED Registration Date: 10/18/17 Care time: The patient presented to the Emergency Department on the above date and was hospitalized for further evaluation of their emergent condition. Critical Care patient: No - Discharge Referral Referred to [facility] Med P.C.: No
== END 2017-10-23 17:24 | disposition home or self-care (01) | DRG 872 ==
LOC: JER 09:50 → JERBED 22:03 → J4S 10-19 17:32
PROVIDERS: ADMIT Internal Medicine; ATTEND Internal Medicine
DX: A41.9 Sepsis, unspecified organism (principal); K57.92 Diverticulitis of intestine, part unspecified, without perforation or abscess without bleeding; Z68.42 Body mass index [BMI] 45.0-49.9, adult; E83.39 Other disorders of phosphorus metabolism; E83.42 Hypomagnesemia; E66.01 Morbid (severe) obesity due to excess calories; E10.65 Type 1 diabetes mellitus with hyperglycemia; Z79.4 Long term (current) use of insulin; J11.1 Influenza due to unidentified influenza virus with other respiratory manifestations
CPT/HCPCS: 36415; 36600; 71045-TC; 74177-TC; 80048; 80053; 81003; 82803; 82962; 83605; 83690; 83735; 84100; 85025; 85027; 85610; 87040; 87086; 87804; 93005; 93010; 99284-25; J1644

== ENCOUNTER 2020-10-28 07:30 | Inpatient (IN) | payer BC, OTHER ==
[2020-10-28] MEDS ORDERED: SODIUM CHLORIDE 1,000 ML IV STA (08:18)
[2020-10-28] MEDS ORDERED: MECLIZINE HCL 25 MG TABLET (FP) PO ONE (08:18)
[2020-10-28] MEDS ORDERED: MECLIZINE HCL 25 MG TABLET (FP) ONE (08:53)
[2020-10-28 09:54] LABS: BASO % 0.6 % (0-2.0); HEMATOCRIT 47.4 % (35.4-49); HEMOGLOBIN 15.8 GM/dL (11.7-16.9); LYMPH % 27.4 % (8-40); MCH 28.9 pg (25.7-33.7); MCHC 33.4 g/dl (32.0-35.9); MEAN CELL VOLUME 86.6 fl (80-96); MEAN PLT VOLUME 9.9 fl (7.5-11.1); MONO % 7.8 % (3.8-10.2); NEUT % 60.2 % (42.8-82.8); PLATELET COUNT 243 K/MM3 (134-434); RBC 5.48 M/mm3 (4.00-5.60); RDW 12.8 % (11.9-15.9); WHITE BLOOD COUNT 8.5 K/mm3 (4.0-10.0)
[2020-10-28 10:15] LABS: CHLORIDE 100 mmol/L (98-107); SODIUM 134 mmol/L (136-145)
[2020-10-28 10:17] LABS: CALCIUM 8.8 mg/dL (8.5-10.1)
[2020-10-28 10:18] LABS: ALBUMIN 3.3 g/dl (3.4-5.0); BLOOD UREA NITROGEN 16.6 mg/dL (7-18); CO2 26 mmol/L (21-32); GLUCOSE,RANDOM 309 mg/dL (74-106)
[2020-10-28 10:21] LABS: SGOT/AST 50 U/L (15-37); SGPT/ALT 35 U/L (13-61)
[2020-10-28 10:22] LABS: BILIRUBIN,TOTAL 0.9 mg/dL (0.2-1); TOT PROT 7.4 g/dl (6.4-8.2)
[2020-10-28 10:23] LABS: ALK PHOS 92 U/L (45-117)
[2020-10-28 10:33] LABS: ANION GAP 8 MMOL/L (8-16)
[2020-10-28 10:36] LABS: POTASSIUM 6.6 mmol/L (3.5-5.1)
[2020-10-28 11:02] LABS: INR 0.98 (0.83-1.09); PROTHROMBIN TIME (PATIENT) 11.9 SEC (9.7-13.0)
[2020-10-28] MEDS ORDERED: diazePAM 5 MG TABLET PO ONE (15:04)
[2020-10-28] MEDS ORDERED: METOCLOPRAMIDE HCL INJECTION 10 MG/2 ML VIAL IVPUSH ONE (15:14)
[2020-10-28] MEDS ORDERED: ACETAMINOPHEN 1000 MG/100 ML VIAL (NON FORMULARY) IVPB ONE (15:14)
[2020-10-28] MEDS ORDERED: diazePAM 5 MG TABLET ONE (15:24)
[2020-10-28] MEDS ORDERED: ACETAMINOPHEN INJECTION 100 ML IVPB ONE (15:24)
[2020-10-28] MEDS ORDERED: METOCLOPRAMIDE HCL INJECTION 10 MG/2 ML VIAL ONE (15:24)
[2020-10-28] MEDS ORDERED: PANTOPRAZOLE SODIUM 40 MG/100 ML BAG IVPB ONE (17:56)
[2020-10-28] MEDS ORDERED: ENOXAPARIN NA (PORCINE) 40 MG/0.4 ML DISP.SYRIN SQ ONE (17:57)
[2020-10-28] MEDS: ENOXAPARIN NA (PORCINE) 40 MG/0.4 ML DISP.SYRIN SQ SCH (18:03)
[2020-10-28] MEDS: PANTOPRAZOLE SODIUM 40 MG VIAL IVPUSH SCH (18:04)
[2020-10-28] MEDS ORDERED: INSULIN REGULAR HUMAN 100 UNITS/ML *VIAL ONE (18:07)
[2020-10-28] MEDS: INSULIN SLIDING SCALE (NOVOLOG) 1 VIAL SQ SCH (18:10)
[2020-10-29 00:03] VITALS: BMI 42.7
[2020-10-29] MEDS: ACETAMINOPHEN 325 MG TABLET (FP) PO PRN (05:36)
[2020-10-29] MEDS: INSULIN SLIDING SCALE (NOVOLOG) 1 VIAL SQ SCH ×3 (06:20→17:35)
[2020-10-29] MEDS: ENOXAPARIN NA (PORCINE) 40 MG/0.4 ML DISP.SYRIN SQ SCH (09:32)
[2020-10-29] MEDS: PANTOPRAZOLE SODIUM 40 MG VIAL IVPUSH SCH (09:33)
[2020-10-29] MEDS ORDERED: FLU VACCINE (FLULAVAL) PF 60 MCG/0.5 ML SYRINGE 2020-2021 IM ONE (10:00)
[2020-10-29 10:26] LABS: POTASSIUM 4.9 mmol/L (3.5-5.1)
[2020-10-29 10:42] LABS: ALBUMIN 3.2 g/dl (3.4-5.0); CALCIUM 8.9 mg/dL (8.5-10.1)
[2020-10-29 10:43] LABS: BLOOD UREA NITROGEN 13.3 mg/dL (7-18)
[2020-10-29 10:45] LABS: CREATININE 0.8 mg/dL (0.55-1.3)
[2020-10-29 10:47] LABS: BILIRUBIN,TOTAL 1.1 mg/dL (0.2-1)
[2020-10-29 10:49] LABS: TOT PROT 6.7 g/dl (6.4-8.2)
[2020-10-29] MEDS ORDERED: diphenhydrAMINE HCL 25 MG CAPSULE (FP) PO PRN (12:22)
[2020-10-29] MEDS: TOPIRAMATE 25 MG TABLET PO SCH (17:36)
[2020-10-29] MEDS ORDERED: SUMAtriptan SUCCINATE 50 MG TABLET PO PRN (18:27)
[2020-10-29] MEDS: INSULIN (NOVOLOG MIX 70/30) 100 UNITS/ML MDV SQ SCH (18:27)
[2020-10-29] MEDS ORDERED: PRAMIPEXOLE DIHYDROCHLORIDE 0.125 MG TABLET PO SCH (22:00)
[2020-10-29] MEDS ORDERED: PT OWN MED DRAWER 7, Y5N ONE (22:03)
[2020-10-30] MEDS: ACETAMINOPHEN 325 MG TABLET (FP) PO PRN (06:08)
[2020-10-30] MEDS: INSULIN (NOVOLOG MIX 70/30) 100 UNITS/ML MDV SQ SCH (06:10)
[2020-10-30] MEDS: INSULIN SLIDING SCALE (NOVOLOG) 1 VIAL SQ SCH ×2 (06:11→12:30)
[2020-10-30 09:23] LABS: POTASSIUM 4.7 mmol/L (3.5-5.1)
[2020-10-30 09:25] LABS: BLOOD UREA NITROGEN 14.2 mg/dL (7-18); CALCIUM 8.7 mg/dL (8.5-10.1)
[2020-10-30 09:28] LABS: CREATININE 0.9 mg/dL (0.55-1.3)
[2020-10-30] MEDS ORDERED: PANTOPRAZOLE 40 MG TABLET PO SCH (10:00)
[2020-10-30] MEDS ORDERED: PT OWN MED DRAWER 7, Y5N ONE (10:43)
[2020-10-30] MEDS: TOPIRAMATE 25 MG TABLET PO SCH (10:44)
[2020-10-30] MEDS: ENOXAPARIN NA (PORCINE) 40 MG/0.4 ML DISP.SYRIN SQ SCH (10:44)
[2020-10-30 11:41] VITALS: BP 136/97; PULSE 74; TEMP 98.4
[2020-10-30] MEDS ORDERED: INSULIN (NOVOLOG MIX 70/30) 100 UNITS/ML MDV SQ SCH (16:30)
== END 2020-10-30 14:23 | disposition home or self-care (01) | DRG 103 ==
LOC: JER 07:30 → JERBED 15:08 → J7W 22:43
PROVIDERS: ADMIT Internal Medicine; ATTEND Internal Medicine
DX: G43.109 Migraine with aura, not intractable, without status migrainosus (principal); Z68.41 Body mass index [BMI] 40.0-44.9, adult; E66.01 Morbid (severe) obesity due to excess calories; E11.65 Type 2 diabetes mellitus with hyperglycemia; Z79.4 Long term (current) use of insulin; R42 Dizziness and giddiness; M62.81 Muscle weakness (generalized); G25.81 Restless legs syndrome
CPT/HCPCS: 36415; 70450-TC; 80048; 80053; 82550; 82962; 83036; 84132; 84484; 85025; 85610; 93005; 93010; 97116-GP; 97161-GP; 99285-25; C9803; G0008; J0131; Q2036; U0003

== ENCOUNTER 2021-12-02 17:36 | Emergency (ER) | payer BC ==
[2021-12-02 17:56] VITALS: TEMP 98.1; BMI 43.2
[2021-12-02] MEDS ORDERED: SODIUM CHLORIDE 1,000 ML IV STA ×2 (18:25→18:26)
[2021-12-02 19:05] LABS: VENOUS PCO2 61.7 mmHg (38-52); VENOUS PH 7.307 (7.310-7.410)
[2021-12-02 19:10] LABS: BASO % 0.6 % (0-2.0); EOS % 2.2 % (0-4.5); HEMATOCRIT 44.6 % (35.4-49); HEMOGLOBIN 14.7 GM/dL (11.7-16.9); LYMPH % 36.9 % (8-40); MCH 28.5 pg (25.7-33.7); MEAN CELL VOLUME 86.4 fl (80-96); MEAN PLT VOLUME 10.2 fl (7.5-11.1); MONO % 8.7 % (3.8-10.2); NEUT % 51.6 % (42.8-82.8); PLATELET COUNT 270 10^3/uL (134-434); RBC 5.16 M/mm3 (4.00-5.60); RDW 12.9 % (11.9-15.9)
[2021-12-02 19:26] LABS: CALCIUM 9.5 mg/dL (8.5-10.1)
[2021-12-02 19:27] LABS: ALBUMIN 3.8 g/dl (3.4-5.0); BLOOD UREA NITROGEN 20.7 mg/dL (7-18)
[2021-12-02 19:30] LABS: CREATININE 1.1 mg/dL (0.55-1.3)
[2021-12-02 19:31] LABS: BILIRUBIN,TOTAL 0.7 mg/dL (0.2-1); TOT PROT 7.4 g/dl (6.4-8.2)
[2021-12-02 21:53] LABS: PH,URINE 6.5 (5.0-8.0); URINE APPEARANCE CLEAR; URINE BILIRUBIN NEGATIVE (NEGATIVE); URINE COLOR YELLOW; URINE GLUCOSE (UA) 3+ (NEGATIVE); URINE KETONE NEGATIVE (NEGATIVE); URINE LEUK ESTERASE NEGATIVE (NEGATIVE); URINE NITRITE NEGATIVE (NEGATIVE); URINE PROTEIN NEGATIVE (NEGATIVE)
[2021-12-02 22:39] VITALS: BP 168/78; PULSE 76
== END 2021-12-02 22:39 | disposition home or self-care (01) ==
LOC: JER 17:36
PROC: 3E0337Z Introduction of Electrolytic and Water Balance Substance into Peripheral Vein, Percutaneous Approach (ICD-10-PCS; principal; 2021-12-02)
DX: E11.65 Type 2 diabetes mellitus with hyperglycemia (principal)
CPT/HCPCS: 36415; 80053; 81003; 82010; 82803; 82962; 85025; 93005; 93010; 99284-25

== ENCOUNTER 2022-01-30 11:14 | Emergency (ER) | payer BC, OTHER ==
[2022-01-30 11:31] VITALS: TEMP 98.4; BMI 43.2
[2022-01-30] MEDS ORDERED: BEBTELOVIMAB (EUA) 175 MG/2 ML VIAL IVPUSH ONE (11:38)
[2022-01-30 14:03] VITALS: BP 105/55; PULSE 91
== END 2022-01-30 14:08 | disposition home or self-care (01) ==
LOC: JER 11:14
PROC: 3E033GC Introduction of Other Therapeutic Substance into Peripheral Vein, Percutaneous Approach (ICD-10-PCS; principal; 2022-01-30)
DX: U07.1 COVID-19 (principal)
CPT/HCPCS: 99284-25; Q0222

== ENCOUNTER 2023-01-02 11:44 | Observation (INO) | payer BC ==
[2023-01-02] MEDS ORDERED: ONDANSETRON 4 MG/2 ML VIAL IVPUSH ONE (13:04)
[2023-01-02] MEDS ORDERED: FAMOTIDINE 20 MG/50 ML IVPB 20 MG/50 ML MG IVPB ONE ×2 (13:04→14:23)
[2023-01-02] MEDS ORDERED: MAG HYDROX/AL HYDROX/SIMETH -MYLANTA- ORAL SUSPENSION PO ONE (13:04)
[2023-01-02 13:15] LABS: BASO % 0.6 % (0-2.0); EOS % 1.5 % (0-4.5); HEMATOCRIT 47.6 % (35.4-49); LYMPH % 18.2 % (8-40); MCH 27.5 pg (25.7-33.7); MCHC 33.6 g/dl (32.0-35.9); MEAN CELL VOLUME 81.8 fl (80-96); MEAN PLT VOLUME 9.1 fl (7.5-11.1); MONO % 7.9 % (3.8-10.2); NEUT % 71.8 % (42.8-82.8); PLATELET COUNT 238 10^3/uL (134-434); RBC 5.82 M/mm3 (4.00-5.60); RDW 13.7 % (11.9-15.9); WHITE BLOOD COUNT 11.7 K/mm3 (4.0-10.0)
[2023-01-02 13:20] LABS: INR 1.1 (0.83-1.09); PROTHROMBIN TIME (PATIENT) 12.8 SEC (9.7-13.0)
[2023-01-02 13:23] LABS: ACTIVATED PTT 33.1 SECONDS (25.2-36.5)
[2023-01-02] MEDS ORDERED: ACETAMINOPHEN 1000 MG/100 ML BAG IVPB ONE ×2 (13:42→21:29)
[2023-01-02 13:44] LABS: ALBUMIN 3.4 g/dl (3.4-5.0); BLOOD UREA NITROGEN 18.3 mg/dL (7-18); MAGNESIUM 1.9 mg/dL (1.8-2.4)
[2023-01-02 13:47] LABS: CREATININE 0.9 mg/dL (0.55-1.3)
[2023-01-02 13:48] LABS: URINE APPEARANCE CLEAR; URINE BILIRUBIN NEGATIVE (NEGATIVE); URINE COLOR YELLOW; URINE GLUCOSE (UA) 3+ (NEGATIVE); URINE KETONE NEGATIVE (NEGATIVE); URINE LEUK ESTERASE NEGATIVE (NEGATIVE); URINE NITRITE NEGATIVE (NEGATIVE); URINE PROTEIN NEGATIVE (NEGATIVE); URINE UROBILINOGEN 0.2 mg/dL (0.2-1.0)
[2023-01-02 13:49] LABS: TOT PROT 7.3 g/dl (6.4-8.2)
[2023-01-02 13:52] LABS: N-TERMINAL BNP 27.5 pg/ml (5-125)
[2023-01-02] MEDS ORDERED: ACETAMINOPHEN INJECTION 100 ML IVPB ONE (14:22)
[2023-01-02] MEDS ORDERED: ONDANSETRON 4 MG/2 ML VIAL ONE (14:23)
[2023-01-02] MEDS ORDERED: MAG HYDROX/AL HYDROX/SIMETH 30 ML UNIT-DOSE CUP ONE (14:23)
[2023-01-02] MEDS ORDERED: FLUCONAZOLE 100 MG TABLET (UD) PO ONE (16:13)
[2023-01-02] MEDS ORDERED: SUMAtriptan SUCCINATE 50 MG TABLET PO PRN (17:18)
[2023-01-02] MEDS ORDERED: MAG HYDROX/AL HYDROX/SIMETH 30 ML UNIT-DOSE CUP PO ONE (19:49)
[2023-01-02] MEDS: GABAPENTIN 300 MG CAPSULE PO SCH (21:58)
[2023-01-02] MEDS: ATORVASTATIN CA 10 MG TABLET (FP) PO SCH (21:58)
[2023-01-02] MEDS ORDERED: PRAMIPEXOLE DIHYDROCHLORIDE 0.125 MG TABLET PO SCH (22:00)
[2023-01-03] MEDS: INSULIN SLIDING SCALE (NOVOLOG) 1 VIAL SQ SCH ×3 (06:10→16:51)
[2023-01-03] MEDS: INSULIN (NOVOLOG MIX 70/30) 100 UNITS/ML MDV SQ SCH ×2 (06:10→16:50)
[2023-01-03 09:08] LABS: BASO % 0.4 % (0-2.0); EOS % 1.6 % (0-4.5); HEMATOCRIT 48.4 % (35.4-49); HEMOGLOBIN 16.1 GM/dL (11.7-16.9); LYMPH % 15.3 % (8-40); MCH 27.4 pg (25.7-33.7); MCHC 33.2 g/dl (32.0-35.9); MEAN CELL VOLUME 82.5 fl (80-96); MEAN PLT VOLUME 8.4 fl (7.5-11.1); NEUT % 74.7 % (42.8-82.8); PLATELET COUNT 269 10^3/uL (134-434); RBC 5.87 M/mm3 (4.00-5.60); WHITE BLOOD COUNT 12.5 K/mm3 (4.0-10.0)
[2023-01-03] MEDS ORDERED: traMADol HCL 50 MG TABLET PO PRN (09:10)
[2023-01-03] MEDS ORDERED: ACETAMINOPHEN 325 MG TABLET (FP) PO PRN (09:10)
[2023-01-03] MEDS: ASPIRIN 81 MG CHEWABLE TABLETS PO SCH (09:20)
[2023-01-03] MEDS: FUROSEMIDE 20 MG TABLET (FP) PO SCH (09:21)
[2023-01-03] MEDS: ENOXAPARIN NA (PORCINE) 40 MG/0.4 ML DISP.SYRIN SQ SCH (09:21)
[2023-01-03] MEDS: FLUCONAZOLE 100 MG TABLET (UD) PO SCH (09:21)
[2023-01-03] MEDS: GABAPENTIN 300 MG CAPSULE PO SCH ×2 (09:22→21:46)
[2023-01-03] MEDS: TOPIRAMATE 25 MG TABLET PO SCH (09:23)
[2023-01-03 09:43] LABS: BILIRUBIN,TOTAL 1.5 mg/dL (0.2-1)
[2023-01-03 09:45] LABS: TOT PROT 7.4 g/dl (6.4-8.2)
[2023-01-03 09:46] LABS: ALBUMIN 3.3 g/dl (3.4-5.0); BLOOD UREA NITROGEN 13.9 mg/dL (7-18); PHOSPHOROUS 3.1 mg/dL (2.5-4.9)
[2023-01-03 09:48] LABS: CREATININE 0.8 mg/dL (0.55-1.3); MAGNESIUM 2.1 mg/dL (1.8-2.4)
[2023-01-03 17:37] LABS: HIV INTERPRETATION NEGATIVE (NEGATIVE)
[2023-01-03] MEDS: ATORVASTATIN CA 10 MG TABLET (FP) PO SCH (21:46)
[2023-01-03] MEDS ORDERED: PRAMIPEXOLE DIHYDROCHLORIDE 0.25 MG TABLET PO SCH (22:00)
[2023-01-04] MEDS: INSULIN SLIDING SCALE (NOVOLOG) 1 VIAL SQ SCH ×2 (06:31→11:20)
[2023-01-04] MEDS: INSULIN (NOVOLOG MIX 70/30) 100 UNITS/ML MDV SQ SCH (06:31)
[2023-01-04 09:08] LABS: BASO % 0.5 % (0-2.0); EOS % 3.3 % (0-4.5); HEMOGLOBIN 16.8 GM/dL (11.7-16.9); LYMPH % 20.2 % (8-40); MCH 27.6 pg (25.7-33.7); MCHC 33.7 g/dl (32.0-35.9); MEAN CELL VOLUME 82.1 fl (80-96); MEAN PLT VOLUME 9.1 fl (7.5-11.1); MONO % 8.4 % (3.8-10.2); NEUT % 67.6 % (42.8-82.8); PLATELET COUNT 264 10^3/uL (134-434); RBC 6.09 M/mm3 (4.00-5.60); RDW 13.6 % (11.9-15.9)
[2023-01-04] MEDS: ASPIRIN 81 MG CHEWABLE TABLETS PO SCH (10:23)
[2023-01-04] MEDS: FLUCONAZOLE 100 MG TABLET (UD) PO SCH (10:23)
[2023-01-04] MEDS: ENOXAPARIN NA (PORCINE) 40 MG/0.4 ML DISP.SYRIN SQ SCH (10:23)
[2023-01-04] MEDS: FUROSEMIDE 20 MG TABLET (FP) PO SCH (10:23)
[2023-01-04] MEDS: GABAPENTIN 300 MG CAPSULE PO SCH (10:23)
[2023-01-04] MEDS: TOPIRAMATE 25 MG TABLET PO SCH (10:24)
[2023-01-04 14:10] VITALS: BMI 44.7
[2023-01-04 14:35] VITALS: BP 98/66; PULSE 85; TEMP 98.5
[2023-01-04 15:41] VITALS: RESP 18
== END 2023-01-04 17:00 | disposition home or self-care (01) ==
LOC: JER 11:44 → JERBED 15:28 → J8W 18:34
PROVIDERS: ADMIT Internal Medicine; ATTEND Nurse Practitioner Family
PROC: 3E023GC Introduction of Other Therapeutic Substance into Muscle, Percutaneous Approach (ICD-10-PCS; 2023-01-02)
PROC: 3E033GC Introduction of Other Therapeutic Substance into Peripheral Vein, Percutaneous Approach (ICD-10-PCS; 2023-01-02)
PROC: 3E013VG Introduction of Insulin into Subcutaneous Tissue, Percutaneous Approach (ICD-10-PCS; 2023-01-02)
PROC: 3E033NZ Introduction of Analgesics, Hypnotics, Sedatives into Peripheral Vein, Percutaneous Approach (ICD-10-PCS; principal; 2023-01-02 14:30)
DX: B37.81 Candidal esophagitis (principal); E11.65 Type 2 diabetes mellitus with hyperglycemia; R10.13 Epigastric pain; E78.5 Hyperlipidemia, unspecified; K57.92 Diverticulitis of intestine, part unspecified, without perforation or abscess without bleeding; Z79.4 Long term (current) use of insulin; K56.49 Other impaction of intestine; R13.10 Dysphagia, unspecified; E66.01 Morbid (severe) obesity due to excess calories; Z68.41 Body mass index [BMI] 40.0-44.9, adult
CPT/HCPCS: 0241U-QW; 36415; 71045-TC-FY; 80053; 81003; 82962; 83036; 83690; 83735; 83880; 84100; 84443; 84484; 85025; 85379; 85610; 85730; 86803; 86850; 86900; 86901; 87086; 87389; 87517; 88104; 88305-TC; 93005; 93010; 94010; 96365; 96372; 96375; 96376; 99285-25; G0378

== ENCOUNTER 2024-02-11 15:01 | Observation (INO) | payer BC ==
[2024-02-11 15:36] VITALS: BMI 46.7
[2024-02-11] MEDS ORDERED: ACETAMINOPHEN INJECTION 100 ML IVPB ONE (16:00)
[2024-02-11] MEDS: SODIUM CHLORIDE 0.9% 500 ML INFUS.BAG IV ONE (16:18)
[2024-02-11] MEDS: ACETAMINOPHEN 1000 MG/100 ML BAG IVPB ONE (16:18)
[2024-02-11 16:19] LABS: VENOUS BASE EXCESS -4.5 mmol/L (-2-2); VENOUS O2 SATURATION 50.1 % (70-80); VENOUS PCO2 41.9 mmHg (38-52); VENOUS PH 7.325 (7.310-7.410)
[2024-02-11 16:24] LABS: BASO % 0.5 % (0-2.0); HEMATOCRIT 49.5 % (35.4-49); HEMOGLOBIN 16.4 GM/dL (11.7-16.9); LYMPH % 18.7 % (8-40); MCH 27.9 pg (25.7-33.7); MCHC 33.2 g/dl (32.0-35.9); MEAN PLT VOLUME 8.7 fl (7.5-11.1); NEUT % 72.8 % (42.8-82.8); PLATELET COUNT 266 10^3/uL (134-434); RBC 5.89 M/mm3 (4.00-5.60); RDW 13.8 % (11.9-15.9); WHITE BLOOD COUNT 13.3 K/mm3 (4.0-10.0)
[2024-02-11 16:36] LABS: POTASSIUM 4.7 mmol/L (3.5-5.1)
[2024-02-11 16:40] LABS: ALBUMIN 3.6 g/dl (3.4-5.0); BLOOD UREA NITROGEN 20.5 mg/dL (7-18); CALCIUM 8.9 mg/dL (8.5-10.1)
[2024-02-11 16:43] LABS: CREATININE 1.4 mg/dL (0.55-1.3)
[2024-02-11 16:45] LABS: BILIRUBIN,TOTAL 2.2 mg/dL (0.2-1); TOT PROT 7.7 g/dl (6.4-8.2)
[2024-02-11 18:30] LABS: PH,URINE 5.5 (5.0-8.0); URINE APPEARANCE CLEAR; URINE BILIRUBIN NEGATIVE (NEGATIVE); URINE COLOR YELLOW; URINE GLUCOSE (UA) 3+ (NEGATIVE); URINE KETONE NEGATIVE (NEGATIVE); URINE LEUK ESTERASE NEGATIVE (NEGATIVE); URINE NITRITE NEGATIVE (NEGATIVE); URINE PROTEIN NEGATIVE (NEGATIVE); URINE UROBILINOGEN 0.2 mg/dL (0.2-1.0)
[2024-02-11] MEDS ORDERED: ACETAMINOPHEN 325 MG TABLET (FP) ONE (21:24)
[2024-02-11] MEDS ORDERED: ROSUVASTATIN CA 20 MG TABLET ONE (21:25)
[2024-02-11] MEDS: LACTATED RINGERS SOLUTION 1,000 ML IV SCH (21:33)
[2024-02-11] MEDS: ROSUVASTATIN CA 20 MG TABLET PO SCH (21:34)
[2024-02-11] MEDS: ACETAMINOPHEN 325 MG TABLET (FP) PO PRN (21:35)
[2024-02-11] MEDS: INSULIN ASPART SLIDING SCALE (NOVOLOG) 1 VIAL SQ SCH (23:02)
[2024-02-12 08:18] LABS: BASO % 0.5 % (0-2.0); HEMATOCRIT 46.8 % (35.4-49); HEMOGLOBIN 15.8 GM/dL (11.7-16.9); LYMPH % 34.3 % (8-40); MCH 28.3 pg (25.7-33.7); MCHC 33.7 g/dl (32.0-35.9); MEAN PLT VOLUME 8.9 fl (7.5-11.1); MONO % 8.2 % (3.8-10.2); PLATELET COUNT 235 10^3/uL (134-434); RBC 5.57 M/mm3 (4.00-5.60); RDW 13.7 % (11.9-15.9); WHITE BLOOD COUNT 8.2 K/mm3 (4.0-10.0)
[2024-02-12 08:45] LABS: MAGNESIUM 2.2 mg/dL (1.8-2.4)
[2024-02-12 08:46] LABS: BLOOD UREA NITROGEN 18.2 mg/dL (7-18)
[2024-02-12 08:49] LABS: CREATININE 0.9 mg/dL (0.55-1.3); PHOSPHOROUS 3.5 mg/dL (2.5-4.9)
[2024-02-12] MEDS: ASPIRIN COATED 81 MG TABLET.EC PO SCH (09:22)
[2024-02-12] MEDS: EZETIMIBE 10 MG TABLET (FP) PO SCH (09:22)
[2024-02-12 09:52] LABS: BILIRUBIN,DIRECT 0.3 mg/dL (0.0-0.2)
[2024-02-12] MEDS: INSULIN (LEVEMIR) 100 UNITS/ML UNITS SQ SCH (10:50)
[2024-02-13 06:54] LABS: POTASSIUM 4.3 mmol/L (3.5-5.1)
[2024-02-13 06:55] LABS: BLOOD UREA NITROGEN 17.4 mg/dL (7-18); CALCIUM 8.9 mg/dL (8.5-10.1)
[2024-02-13 06:56] LABS: ALBUMIN 3.4 g/dl (3.4-5.0)
[2024-02-13 06:59] LABS: CREATININE 0.9 mg/dL (0.55-1.3)
[2024-02-13 07:00] LABS: BILIRUBIN,TOTAL 1.4 mg/dL (0.2-1); TOT PROT 7.6 g/dl (6.4-8.2)
[2024-02-14 13:59] VITALS: RESP 18
[2024-02-14 14:29] VITALS: BP 101/72; PULSE 85; TEMP 98.3
== END 2024-02-14 16:35 | disposition home or self-care (01) ==
LOC: JER 15:01 → JERBED 17:17 → J4S 22:14
PROVIDERS: ADMIT Internal Medicine
PROC: 3E033NZ Introduction of Analgesics, Hypnotics, Sedatives into Peripheral Vein, Percutaneous Approach (ICD-10-PCS; principal; 2024-02-11)
PROC: 3E013VG Introduction of Insulin into Subcutaneous Tissue, Percutaneous Approach (ICD-10-PCS; 2024-02-11)
PROC: 3E0337Z Introduction of Electrolytic and Water Balance Substance into Peripheral Vein, Percutaneous Approach (ICD-10-PCS; 2024-02-11)
DX: N17.9 Acute kidney failure, unspecified (principal); E86.0 Dehydration; E11.9 Type 2 diabetes mellitus without complications; I10 Essential (primary) hypertension; E78.5 Hyperlipidemia, unspecified; M17.12 Unilateral primary osteoarthritis, left knee; R07.9 Chest pain, unspecified; E66.01 Morbid (severe) obesity due to excess calories; Z68.42 Body mass index [BMI] 45.0-49.9, adult
CPT/HCPCS: 0241U-QW; 36415; 71045-TC-FY; 80048; 80053; 81003; 82010; 82248; 82550; 82803; 82962; 83735; 84100; 84484; 85025; 87077; 87086; 93005; 93010; 99285-25; G0378; J0131